=== PATIENT | female | born 1965 | race Caucasian/White ===

== ENCOUNTER → 2020-04-19 | Outpatient (CLI) | payer OTHER ==
[2020-04-19 09:02] LABS: Basophils # (A) 0.1 k/uL (0-0.2); Basophils % (A) 1 %; Eosinophils # (A) 0.5 k/uL (0-0.7); Eosinophils % (A) 6 %; HCT 37.9 % (34.0-46.0); HGB 12.8 gm/dL (11.4-16.0); Lymphocytes # (A) 3.5 k/uL (1.0-4.8); Lymphocytes % (A) 47 %; MCH 31.7 pg (25.0-35.0); MCHC 33.7 g/dL (31.0-37.0); Mean Platelet Volume 7.7; Monocytes # (A) 0.5 k/uL (0-1.0); Monocytes % (A) 7 %; Neutrophils # (A) 2.6 k/uL (1.3-7.7); Neutrophils % (A) 36 %; Platelet Count 307 k/uL (150-450); RBC 4.03 m/uL (3.80-5.40); RDW 11.6 % (11.5-15.5); WBC 7.3 k/uL (3.8-10.6)
[2020-04-19 09:28] LABS: Potassium 4.4 mmol/L (3.5-5.1)
== END | disposition home or self-care (01) ==
LOC: LABPAT 08:42
PROVIDERS: ATTEND Orthopaedic Surgery
DX: G56.01 Carpal tunnel syndrome, right upper limb (principal)
CPT/HCPCS: 36415; 80051; 85025

== ENCOUNTER → 2020-04-19 | Outpatient (CLI) | payer OTHER ==
--- NOTE | 2020-04-19 11:50 | MM ---
Reason for exam: screening (asymptomatic). Physical Findings: A clinical breast exam by your physician is recommended on an annual basis and results should be correlated with mammographic findings. MG 3D Screening Mammo W/Cad Bilateral CC and MLO view(s) were taken. No prior studies available for comparison. There are scattered fibroglandular densities. Finding: There is a 6 mm circumscribed round mass in the upper outer quadrant, posterior position of the right breast. Suspect low lying benign lymph node. Advise ultrasound follow up. Benign right axillary lymph nodes. ASSESSMENT: Incomplete: need additional imaging evaluation, BI-RAD 0 RECOMMENDATION: Ultrasound of the right breast. [facility] will attempt to contact patient to return for ultrasound.
== END | disposition home or self-care (01) ==
LOC: RADMAMWWP 08:56
PROVIDERS: ATTEND Family Medicine
DX: Z12.31 Encounter for screening mammogram for malignant neoplasm of breast (principal)
CPT/HCPCS: 77063; 77067

== ENCOUNTER 2020-05-02 10:37 | Day surgery (SDC) | payer OTHER ==
[2020-04-27 15:59] VITALS: BMI 32.9
--- NOTE | 2020-05-01 14:06 | HP ---
HISTORY AND PHYSICAL DATE OF SURGERY: 05/02/2020. Saima Gerard is a 54-year-old patient seen with symptomatic right carpal tunnel syndrome. We discussed options. She elected to proceed decompression, right median nerve. Consent was obtained. PAST MEDICAL HISTORY: Hyperlipidemia, hypertension. PAST SURGICAL HISTORY: section. DAILY MEDICATIONS: Hydrochlorothiazide, losartan, pravastatin. ALLERGIES: None. SOCIAL HISTORY: She denies current tobacco use. PHYSICAL EVALUATION OF THE RIGHT HAND: She has positive carpal compression and carpal tunnels causing exacerbation with numbness and tingling along the median nerve distribution. She does have some decreased sensation along the median nerve distribution. She has good radial pulse and good perfusion distally. She the A1 oscar areas. X-RAYS OF THE RIGHT HAND AND WRIST: Reveal some osteoarthritic changes. An EMG of the upper extremities reveals severe bilateral carpal tunnel syndrome. IMPRESSION: 1. Right carpal tunnel syndrome. 2. Hypertension. 3. Hyperlipidemia. PLAN: Decompression right median nerve. MMODL / IJN: [id number] /
[~2020-05-02 10:37] MED LIST: LACTATED RINGERS 1,000 ML IV SCH; LIDOCAINE 1% (10MG/ML) FOR IV START INTRADERMA PRN
[2020-05-02] MEDS ORDERED: ONDANSETRON 4 MG/2 ML VIAL ONE (11:37)
[2020-05-02] MEDS ORDERED: DEXAMETHASONE SOD PHOSPHATE 10 MG/ML 1 ML VIAL IV ONE (11:38)
[2020-05-02] MEDS ORDERED: ONDANSETRON 4 MG/2 ML VIAL IVP ONE (11:39)
[2020-05-02] MEDS ORDERED: PROPOFOL 10 MG/ML 20 ML VIAL IV ONE (12:10)
[2020-05-02] MEDS ORDERED: fentaNYL (PF) 50 MCG/ML 2 ML AMP ONE (12:10)
[2020-05-02] MEDS ORDERED: MIDAZOLAM 2 MG/2 ML VIAL ONE (12:10)
[2020-05-02] MEDS ORDERED: BUPIVACAINE (PF) 0.25% 30 ML VIAL SQ ONE (12:33)
--- NOTE | 2020-05-02 12:54 | P.OP ---
Date of Procedure: 05/02/20 Preoperative Diagnosis: Right carpal tunnel syndrome Postoperative Diagnosis: Right carpal tunnel syndrome Procedure(s) Performed: Decompression right median nerve Anesthesia: MAC, local Surgeon: Harinder Somers Estimated Blood Loss (ml): 1 Pathology: none sent Condition: stable Disposition: PACU Indications for Procedure: 54-year-old patient seen with symptomatic right carpal tunnel syndrome. After having treatment options discussed, she elected to proceed with decompression right median nerve. Operative Findings: see description of procedure Description of Procedure: Patient was taken to the operative suite. Patient underwent IV sedation by the department of anesthesia. The patient received preoperative IV antibiotics. A well-padded tourniquet was placed proximal right upper extremity. The right upper extremity was prepped and draped in the normal sterile orthopedic fashion. The proposed incision site was infiltrated with 10 mL quarter percent plain Marcaine. When sufficient local analgesia was noted the extremity was elevated and the tourniquet was insufflated to 250. I now made an incision beginning at the distal volar wrist crease extending distally approximately 3 cm in line with the fourth metacarpal. I dissected down through the subcu soft tissues and through the palmar fascia to the transverse carpal ligament. I made a small incision through the transverse carpal ligament. I released the ligament proximally and distally with blunt Metzenbaums. There was complete release of the transverse carpal ligament was good decompression of the nerve. We had good hemostasis. The wound was irrigated. The skin margins were proximal nylon suture. I applied sterile dressings. The tourniquet was released with immediate capillary refill of the entire hand and digits noted. I now applied sterile web roll and Coban. The patient was now awakened transferred to recovery stable satisfactory condition.
[2020-05-02 13:10] VITALS: TEMP 97
[2020-05-02 14:32] VITALS: BP 138/82; PULSE 56; RESP 18
== END 2020-05-02 14:30 | disposition home or self-care (01) ==
LOC: OR 10:37
PROVIDERS: ATTEND Orthopaedic Surgery
DX: G56.01 Carpal tunnel syndrome, right upper limb (principal); E78.5 Hyperlipidemia, unspecified; I10 Essential (primary) hypertension; Z79.899 Other long term (current) drug therapy; Z98.891 History of uterine scar from previous surgery; Z79.1 Long term (current) use of non-steroidal anti-inflammatories (NSAID)
CPT/HCPCS: 81025; 64721; J2250; J1100; J0690; J2405; J3010; J2704

== ENCOUNTER → 2020-05-07 | Outpatient (CLI) | payer OTHER ==
--- NOTE | 2020-05-07 08:45 | USB ---
Reason for exam: additional evaluation requested from abnormal screening. Physical Findings: Nurse did not find any significant physical abnormalities on exam. US Breast Workup Limited RT Right limited breast ultrasound including focal area of concern, retroareolar and axilla demonstrates a 6 x 5 x 4mm oval lymph node at 10 o'clock, correspoonds well to the mammographic finding. 6 month follow up mammogram recommended to ensure the node remains stable. Scanned 9-12 o'clock. These results were verbally communicated with the patient and result sheet given to the patient on 05/07/20. ASSESSMENT: Probably benign, BI-RAD 3 RECOMMENDATION: Follow-up diagnostic mammogram of the right breast in 6 months.
== END | disposition home or self-care (01) ==
LOC: RADUSWWP 07:40
PROVIDERS: ATTEND Family Medicine
DX: R92.8 Other abnormal and inconclusive findings on diagnostic imaging of breast (principal)

== ENCOUNTER → 2020-06-20 | Outpatient (CLI) | payer OTHER ==
[2020-06-20 07:48] LABS: Basophils # (A) 0.1 k/uL (0-0.2); Basophils % (A) 1 %; Eosinophils # (A) 0.3 k/uL (0-0.7); Eosinophils % (A) 3 %; HCT 38.3 % (34.0-46.0); Lymphocytes # (A) 3.1 k/uL (1.0-4.8); Lymphocytes % (A) 27 %; MCH 31.9 pg (25.0-35.0); MCV 93.8 fL (80.0-100.0); Mean Platelet Volume 7.3; Monocytes # (A) 0.6 k/uL (0-1.0); Monocytes % (A) 5 %; Neutrophils # (A) 7.1 k/uL (1.3-7.7); Neutrophils % (A) 63 %; Platelet Count 298 k/uL (150-450); RBC 4.08 m/uL (3.80-5.40); WBC 11.3 k/uL (3.8-10.6)
[2020-06-20 08:02] LABS: Potassium 4.3 mmol/L (3.5-5.1)
== END | disposition home or self-care (01) ==
LOC: LABWHC1 07:04
PROVIDERS: ATTEND Orthopaedic Surgery
DX: G56.02 Carpal tunnel syndrome, left upper limb (principal)
CPT/HCPCS: 36415; 80051; 85025

== ENCOUNTER 2020-06-28 14:49 | Day surgery (SDC) | payer OTHER ==
[2020-06-26 11:58] VITALS: BMI 32.7
--- NOTE | 2020-06-27 16:46 | HP ---
HISTORY AND PHYSICAL DATE OF SURGERY: 06/28/2020 Saima Gerard is a 55-year-old lady seen with symptomatic left carpal tunnel syndrome. We discussed options for treatment. She elected to proceed with decompression of the left median nerve. Consent was obtained. PAST MEDICAL HISTORY: Hyperlipidemia, hypertension. PAST SURGICAL HISTORY: Right carpal tunnel release, section. DAILY MEDICATIONS: Hydrochlorothiazide, losartan, pravastatin. ALLERGIES: NONE. SOCIAL HISTORY: She denies tobacco use currently. PHYSICAL EVALUATION OF THE LEFT HAND: Positive carpal compression and positive carpal Tinel's which cause numbness and tingling throughout the median nerve distribution. There is no tenderness along the A1 oscar sites. There is good sensation distally. EMG reveals severe carpal tunnel syndrome. IMPRESSION: 1. Left carpal tunnel syndrome. 2. Hypertension. 3. Hyperlipidemia. PLAN: Decompression of left median nerve. MMTHIL / IJN: [id number] /
[~2020-06-28 14:49] MED LIST changes: +DEXAMETHASONE SOD PHOSPHATE 4 MG/ML 1 ML VIAL IV ONE; +HYDROmorphone 0.5 MG/0.5 ML SYRINGE IVP PRN; +MIDAZOLAM 2 MG/2 ML VIAL IV PRN; +ONDANSETRON 4 MG/2 ML VIAL IVP ONE
[2020-06-28 15:14] VITALS: RESP 16; TEMP 97.3
[2020-06-28] MEDS ORDERED: fentaNYL (PF) 50 MCG/ML 2 ML AMP ONE (16:06)
[2020-06-28] MEDS ORDERED: PROPOFOL 10 MG/ML 20 ML VIAL IV ONE (16:06)
[2020-06-28] MEDS ORDERED: LIDOCAINE 1% INJ 10MG/ML (20 ML MDV) ONE (16:06)
[2020-06-28] MEDS ORDERED: MIDAZOLAM 2 MG/2 ML VIAL ONE (16:06)
[2020-06-28] MEDS ORDERED: BUPIVACAINE (PF) 0.25% 30 ML VIAL SQ ONE (16:22)
--- NOTE | 2020-06-28 16:53 | P.OP ---
Date of Procedure: 06/28/20 Preoperative Diagnosis: Left carpal tunnel syndrome Postoperative Diagnosis: Left carpal tunnel syndrome Procedure(s) Performed: Decompression left median nerve Anesthesia: MAC, local Surgeon: Harinder Somers Estimated Blood Loss (ml): 0 Pathology: none sent Condition: stable Disposition: PACU Indications for Procedure: 55-year-old patient seen with symptomatic left carpal tunnel syndrome. I discussed options for treatment and she elected to proceed with decompression left median nerve. Operative Findings: See description of procedure Description of Procedure: She was taken to the operative suite. Well-padded tourniquet placed left upper extremity proximally. She received preoperative IV antibiotics. The left upper extremity was prepped and draped in the normal sterile orthopedic fashion. The proposed incision site was infiltrated with 10 mL quarter percent plain Marcaine. The extremity was elevated and tourniquet insufflated to 250. I made an incision beginning at the distal volar wrist crease extending distally approximately 3 cm in line with the fourth metacarpal sharply through skin. I dissected down through the subcutaneous soft tissues down to the palmar fascia to the transverse carpal ligament. I made a small incision through the transverse carpal ligament. I completed the release proximally and distally with blunt Metzenbaums. There was complete release of the transverse carpal ligament and good decompression of the nerve. There was good hemostasis. I irrigated the wound. I repaired the skin with nylon suture. Sterile dressings were applied. The tourniquet was released and immediate capillary refill noted. The patient was awakened and transferred to recovery stable condition.
[2020-06-28 17:00] VITALS: BP 134/85; PULSE 63
== END 2020-06-28 17:12 | disposition home or self-care (01) ==
LOC: OR 14:49
PROVIDERS: ATTEND Orthopaedic Surgery
DX: G56.02 Carpal tunnel syndrome, left upper limb (principal); I10 Essential (primary) hypertension; E78.5 Hyperlipidemia, unspecified; Z86.69 Personal history of other diseases of the nervous system and sense organs; Z98.890 Other specified postprocedural states; Z79.899 Other long term (current) drug therapy; Z79.891 Long term (current) use of opiate analgesic
CPT/HCPCS: 64721; J2250; J1100; J0690; J2405; J2001; J3010; J2704

== ENCOUNTER → 2020-10-12 | Outpatient (CLI) | payer OTHER ==
--- NOTE | 2020-10-15 03:40 | MR ---
EXAMINATION TYPE: MR shoulder RT wo con DATE OF EXAM: 10/12/2020 COMPARISON: Outside radiograph 09/25/2020 HISTORY: 55-year-old female M25.511, right shoulder pain. TECHNIQUE: Multiplanar, multisequence imaging of the right shoulder is performed without contrast. FINDINGS: The intracapsular portion of the long head biceps tendon is not well seen and could be severely tendi notic or torn. The tendon is also not well seen within the bicipital groove. It becomes adequately vi sualized just below the level of the bicipital groove where moderate tenosynovitis of fluid is presen t. The subscapularis tendon is thickened and heterogeneous but appears grossly intact. Minimal fatty str eaks are present within this muscle belly. Mild to moderate degenerative joint space narrowing is present at the acromioclavicular joint. An os acromiale with some fluid is present. There is a full-thickness tear of the majority of the supraspinatus tendon measuring 2.0 cm AP. The s tump is retracted nearly to the level of the glenoid by 3.4 cm. Minimal fatty streaks within its musc le belly. The infraspinatus tendon fibers are severely thickened and heterogeneous. There is a tiny articular s ided tear measuring 3 x 3 mm of the anterior intraspinous tendon proximal to the footprint, nearly be low the level of the AC joint. Mild to moderate fluid is present within the subacromial/subdeltoid bursa continuous with the glenohu meral joint. The superior labrum appears degenerative and blunted. Mild articular cartilage irregularity throughou t the glenohumeral joint. No para labral cysts. No Hill-Sachs deformity. Patchy red marrow is present in the seen in the setting of anemia, obesity, smoking, and cardiac disease. IMPRESSION: 1. Severe diffuse rotator cuff tendinosis. 2. Full-thickness tear of nearly the entire supraspinatus tendon measuring 2.0 cm AP and stump retrac davide nearly to the glenoid by 3.4 cm. Minimal fatty streaks within its muscle belly. 3. Minimal fatty streaks within the subscapularis muscle belly though the majority of the tendon appe ars intact. 4. Tendinosis is particularly severe involving the infraspinatus tendon. There is a tiny articular si ded 3 x 3 mm tear of the anterior fibers proximal to the footprint, nearly below the level of the AC joint. 5. Unable to adequately visualize the intracapsular portion of the long head biceps tendon or within most of the bicipital groove. There may be an underlying long head biceps tendon tear. 6. Degenerative joint space narrowing at the AC joint. An os acromiale is noted. 7. Mild degenerative changes in the glenohumeral joint.
== END | disposition home or self-care (01) ==
LOC: RADMRIMAIN 12:33
PROVIDERS: ATTEND Orthopaedic Surgery
DX: M75.121 Complete rotator cuff tear or rupture of right shoulder, not specified as traumatic (principal); M19.011 Primary osteoarthritis, right shoulder

== ENCOUNTER → 2020-11-21 | Outpatient (CLI) | payer OTHER ==
--- NOTE | 2020-11-22 09:44 | MM ---
Reason for exam: follow-up at short interval from prior study. Last mammogram was performed 7 months ago. History: Patient is postmenopausal. Physical Findings: Nurse did not find any significant physical abnormalities on exam. MG 3D Diag Mammo W/Cad RT CC and MLO view(s) were taken of the right breast. Prior study comparison: April 19, 2020, bilateral MG 3d screening mammo w/cad. The breast tissue is heterogeneously dense. This may lower the sensitivity of mammography. Stable lymph node upper outer right breast. These results were verbally communicated with the patient and result sheet given to the patient on 11/21/20. ASSESSMENT: Benign, BI-RAD 2 RECOMMENDATION: Return to routine screening mammogram schedule for both breasts.
== END | disposition home or self-care (01) ==
LOC: RADMAMWWP 14:20
PROVIDERS: ATTEND Family Medicine
DX: R92.2 Inconclusive mammogram (principal); Z78.0 Asymptomatic menopausal state
CPT/HCPCS: 77065; G0279; 77061

== ENCOUNTER → 2020-12-05 | Outpatient (CLI) | payer OTHER ==
[2020-12-05 10:47] LABS: Basophils # (A) 0.08 X 10*3/uL (0.00-0.10); Basophils % (A) 0.8 %; Eosinophils # (A) 0.52 X 10*3/uL (0.04-0.35); Eosinophils % (A) 5.3 %; HCT 39.2 % (37.2-46.3); HGB 13.2 g/dL (12.0-15.0); Lymphocytes # (A) 3.57 X 10*3/uL (0.90-5.00); Lymphocytes % (A) 36.6 %; MCH 31.3 pg (27.0-32.0); MCHC 33.7 g/dL (32.0-37.0); MCV 92.9 fL (80.0-97.0); Monocytes # (A) 0.77 X 10*3/uL (0.20-1.00); Monocytes % (A) 7.9 %; Neutrophils # (A) 4.79 X 10*3/uL (1.80-7.70); Neutrophils % (A) 49.2 %; Platelet Count 307 X 10*3/uL (140-440); RBC 4.22 X 10*6/uL (4.10-5.20); RDW 12.5 % (11.5-14.5); WBC 9.75 X 10*3/uL (4.50-10.00)
[2020-12-05 12:05] LABS: Anion Gap 10.6 mmol/L (4.00-12.00); Carbon Dioxide 25.4 mmol/L (21.6-31.8); Potassium 4.1 mmol/L (3.5-5.5)
== END | disposition home or self-care (01) ==
LOC: LABWHC1 07:44
PROVIDERS: ATTEND Orthopaedic Surgery
DX: Z01.812 Encounter for preprocedural laboratory examination (principal); Z01.810 Encounter for preprocedural cardiovascular examination; M75.41 Impingement syndrome of right shoulder
CPT/HCPCS: 36415; 80051; 85025; 93005

== ENCOUNTER 2020-12-26 08:47 | Day surgery (SDC) | payer OTHER ==
[2020-12-24 12:36] VITALS: BMI 32.9
--- NOTE | 2020-12-25 14:05 | HP ---
HISTORY AND PHYSICAL REASON FOR ADMISSION: Surgery is 12/26/2020. HISTORY OF PRESENT ILLNESS: Saima Gerard is a 55-year-old patient seen with progressive right shoulder pain. We discussed options for treatment. She elected to proceed with arthroscopy. Consent was obtained. PAST MEDICAL HISTORY: Hypertension and hypercholesterolemia. PAST SURGICAL HISTORY: section. MEDICATIONS: Hydrochlorothiazide, losartan, pravastatin. ALLERGIES: NONE. SOCIAL HISTORY: Denies tobacco use. PHYSICAL EVALUATION OF THE RIGHT SHOULDER: Flexion is 140, abduction is 110, external rotation is 30 with weakness and significant pain. Tenderness along the anterolateral acromion rotator cuff insertion site. Impingement positive at 90. Drop-arm sign is positive. Distal neurovascular exam is intact. RADIOGRAPHS: Radiographs of the right shoulder revealed a type 2 acromion, acromioclavicular and osteoarthritis and cystic changes of the greater tuberosity. Right shoulder MRI revealed a large retracted rotator cuff tendon tear. IMPRESSION: 1. Right shoulder impingement with rotator cuff tear. 2. Right shoulder acromioclavicular joint osteoarthritis. 3. Hypertension. 4. Hyperlipidemia. PLAN: Right shoulder arthroscopy, subacromial decompression, arthroscopic rotator cuff repair, Kang procedure and debridement. Surgery scheduled for 12/26/2020. MMODL / IJN: [id number] /
[~2020-12-26 08:47] MED LIST changes: +FAMOTIDINE 20 MG/2 ML VIAL IV PRN; -LACTATED RINGERS 1,000 ML IV SCH; -LIDOCAINE 1% (10MG/ML) FOR IV START INTRADERMA PRN; -MIDAZOLAM 2 MG/2 ML VIAL IV PRN
[2020-12-26] MEDS: LACTATED RINGERS 1,000 ML IV SCH ×2 (09:33→10:05)
[2020-12-26] MEDS ORDERED: MIDAZOLAM 2 MG/2 ML VIAL IVP ONE (09:44)
[2020-12-26] MEDS ORDERED: GLYCOPYRROLATE 0.2 MG/ML 2 ML VIAL ONE (10:01)
[2020-12-26] MEDS ORDERED: LIDOCAINE 1% INJ 10MG/ML (20 ML MDV) ONE (10:01)
[2020-12-26] MEDS ORDERED: PROPOFOL 10 MG/ML 20 ML VIAL IV ONE (10:01)
[2020-12-26] MEDS ORDERED: DEXAMETHASONE SOD PHOSPHATE 4 MG/ML 1 ML VIAL ONE (10:01)
[2020-12-26] MEDS ORDERED: MIDAZOLAM 2 MG/2 ML VIAL ONE (10:01)
[2020-12-26] MEDS ORDERED: KETOROLAC 15 MG/ML 1 ML VIAL ONE (10:01)
[2020-12-26] MEDS ORDERED: fentaNYL (PF) 50 MCG/ML 2 ML AMP ONE (10:01)
[2020-12-26] MEDS ORDERED: ROPIVACAINE 5 MG/ML 30 ML VIAL ONE (10:01)
[2020-12-26] MEDS ORDERED: SUCCINYLCHOLINE CHLORIDE 100 MG/5 ML SYR IV ONE (10:01)
--- NOTE | 2020-12-26 11:46 | P.OP ---
Date of Procedure: 12/26/20 Preoperative Diagnosis: Right shoulder impingement Postoperative Diagnosis: 1. Right shoulder rotator cuff tear 2. Right shoulder impingement 3. Right shoulder acromioclavicular joint osteoarthritis 4. Right shoulder partial long head biceps tendon tear Procedure(s) Performed: 1. Right shoulder arthroscopic rotator cuff repair 2. Right shoulder arthroscopic subacromial decompression 3. Right shoulder arthroscopic Kang procedure 4. Right shoulder arthroscopic biceps tenotomy Implants: 4Arthrex 4.75 swivel lock anchors Anesthesia: GETA, regional (Interscalene block) Surgeon: Harinder Somers Manufacturing Quality Manager #1: Trenton Duggan Estimated Blood Loss (ml): 11 Pathology: none sent Condition: stable Disposition: PACU Indications for Procedure: 55-year-old patient seen with progressive right shoulder pain. After having t reatment options discussed, she elected to proceed with arthroscopy. Operative Findings: see description of procedure Description of Procedure: Patient underwent an interscalene block by department of anesthesia. The patient was then taken to the operative suite. The patient underwent a general anesthetic by the department of anesthesia. The patient was placed into a lateral position and secured. There was appropriate padding of the bony prominence. Right shoulder was then prepped and draped in normal sterile orthopedic fashion. We placed the extremity in 10 pounds of longitudinal traction. A posterior incision was now made for a posterior working portal site. The trocar and cannula were inserted into the glenohumeral joint. Arthroscopy was initiated. Spinal needle was now inserted anteriorly, to ascertain the anterior working portal site. An incision was now made in that area, a trocar was inserted followed by a probe. There was mild grade 1 chondromalacia of the glenoid fossa anteriorly. There was significant partial tearing long head biceps tendon. There was mild fraying of the superior labrum. The remainder labrum was stable. I performed an arthroscopic biceps tenotomy. I debrided that superficial fraying of the labrum. The residual labrum was again probed and found to be stable. Instruments now removed from the glenohumeral joint. Utilizing the posterior working portal site, the trocar and cannula were inserted into the subacromial space. Arthroscopy initiated. I made an incision 2 fingerbreadths lateral to the acromion. I introduced my trocar followed by my ArthroCare ablator. I now began ablating thick subacromial bursal tissue, which exposed the undersurface of the anterior acromion. There was diminished subacromial space. There was a very prominent anterior acromion. A motorized bur was introduced and a subacromial decompression was performed. I also excised some osteophytes off the inferior aspect of the distal clavicle. The AC joint was visualized and noted to be fairly arthritic. The motorized bur was introduced in the anterior portal site and a Kang procedure was performed wi thout difficulty, decompressing the AC joint nicely. I turned my attention to the rotator cuff. There was a 2.5 cm rotator cuff tear. I debrided the margins getting down to stable tendon tissue. I introduced my motorized bur and abraded the footprint area, getting some petechial bleeding. I now made an accessory portal site off the lateral aspect of the acromion. I punched 2 holes medial for medial row fixation with the assistance of Trenton MATOS carefully tapping the punch with a mallet as I held the punch and the camera. I now introduced both anchors into the pre-punched holes and Trenton MATOS tapped them with the mallet as I held anchors and the camera. Trenton MATOS now screwed the anchors in place a while I held the anchor guide and camera. All 8 limbs of suture were now passed through good bites of rotator cuff tendon. I now punched 2 holes for lateral row fixation again I held the punch and camera while Sarmad MATOS used a mallet to tap in the punch. We now passed sutures through both anchors and individually I introduced the anchors into the pre-punch holes I held the anchor guide in position with one hand holding the camera with the other hand while Trenton MATOS tensioned the sutures and screwed in the anchors one at a time. All residual suture limbs were now clipped. We had good compression of the tendon along the entire footprint. Instruments now removed from the portal sites. All portal sites were approximated with nylon suture. Sterile dressings were applied followed by a shoulder immobilizer. Trenton MATOS assisted in this complex case. The patient was awakened, transferred to a bed, and taken to recovery in stable condition.
[2020-12-26 11:50] VITALS: TEMP 97.5
[2020-12-26] MEDS ORDERED: ONDANSETRON 4 MG/2 ML VIAL ONE (12:45)
[2020-12-26] MEDS ORDERED: ONDANSETRON 4 MG/2 ML VIAL IVP ONE (12:48)
[2020-12-26 13:46] VITALS: BP 143/84; PULSE 60; RESP 15
--- NOTE | 2020-12-27 20:02 | P.ANPRN ---
Procedure Note - Anesthesia - Nerve Block Performed Right Interscalene Single Time Out Performed: Yes Date of Procedure: 12/26/20 Procedure Start Time: 08:43 Procedure Stop Time: 08:49 Location of Patient: PreOp Indication: Acute Post-Operative Pain, Requested by Surgeon Sedation Type: Sedate with meaningful contact maintained Preparation: Sterile Prep Position: Supine Needle Types: Pajunk Needle Gauge: 21 Ultrasound used to visualize needle placement: Yes Ultrasound used to observe medication spread: Yes Blood Aspirated: No Pain Paresthesia on Injection Noted: No Resistance on Injection: Normal Image Stored and Saved: Yes Events: Uneventful and Well Tolerated (ropi .5% 20cc plus dexamethasone 4mg)
== END 2020-12-26 14:15 | disposition home or self-care (01) ==
LOC: OR 08:47
PROVIDERS: ATTEND Orthopaedic Surgery
DX: M75.101 Unspecified rotator cuff tear or rupture of right shoulder, not specified as traumatic (principal); M25.811 Other specified joint disorders, right shoulder; M19.011 Primary osteoarthritis, right shoulder; S46.111A Strain of muscle, fascia and tendon of long head of biceps, right arm, initial encounter; S43.431A Superior glenoid labrum lesion of right shoulder, initial encounter; X58.XXXA Exposure to other specified factors, initial encounter; M94.211 Chondromalacia, right shoulder; M25.711 Osteophyte, right shoulder; E78.5 Hyperlipidemia, unspecified; I10 Essential (primary) hypertension; E78.00 Pure hypercholesterolemia, unspecified; Z98.891 History of uterine scar from previous surgery; Z98.890 Other specified postprocedural states; Z79.899 Other long term (current) drug therapy; Z79.891 Long term (current) use of opiate analgesic
CPT/HCPCS: 29826; 29827; 29824; 64415; 76942; C1713; C1894; J2250; J1100; J0690; J2405; J2001; J3010; J2795; J1885; J0330; J2704

== ENCOUNTER 2021-02-04 20:16 | Emergency (ER) | payer OTHER ==
[2021-02-04 20:38] VITALS: BP 149/82; PULSE 63; RESP 18; TEMP 98
[2021-02-04] MEDS ORDERED: LIDOCAINE 1% INJ 10MG/ML (20 ML MDV) SQ STA (21:07)
--- NOTE | 2021-02-04 21:13 | ED ---
General Adult HPI - General Chief complaint: Extremity Problem,Nontraumatic Stated complaint: Cat Bite Time Seen by Provider: 02/04/21 20:44 Source: patient Mode of arrival: ambulatory Limitations: no limitations - History of Present Illness Initial comments: 55-year-old female with a past medical history of hyperlipidemia and hypertension presents to the emergency room for chief complaint of left leg redness. Patient reports that this started 3 days ago. She was bitten by a cat 20 days ago and had Augmentin up until 10 days ago. Patient had stopped the Augmentin for about a week when the redness and swelling started again. Patient saw her doctor today who started her both on doxycycline and Flagyl. Told her to come to the ER for worsened. Patient states the redness spread down to her ankle so she became concerned. Patient has no other complaints at this time including shortness of breath, chest pain, abdominal pain, nausea or vomiting, headache, or visual changes. - Related Data Home Medications Medication Instructions Recorded Confirmed Cetirizine HCl [Zyrtec] 10 mg PO DAILY 04/27/20 12/26/20 Losartan Potassium [Cozaar] 100 mg PO DAILY 04/27/20 12/26/20 Montelukast [Singulair] 10 mg PO HS 04/27/20 12/26/20 Multivit with Calcium,Iron,Min 1 each PO DAILY 04/27/20 12/26/20 [Women's Multivitamin] Naprosyn (Unknown Dose) 1 tab PO DIRECTED PRN 04/27/20 12/26/20 [place]-3 Fatty Acids/Fish Oil [Fish 1 each PO DAILY 04/27/20 12/26/20 Oil 1,000 mg Softgel] Pravastatin Sodium [Pravachol] 20 mg PO HS 04/27/20 12/26/20 hydroCHLOROthiazide 25 mg PO DAILY 04/27/20 12/26/20 Previous Rx's Medication Instructions Recorded traMADol HCl [Ultram] 50 mg PO Q6H PRN #10 tab 05/02/20 HYDROcodone/APAP 7.5-325MG [[place] 1 each PO Q6HR PRN #28 tab 12/26/20 7.5] Allergies Allergy/AdvReac Type Severity Reaction Status Date / Time No Known Allergies Allergy Verified 02/04/21 20:38 Review of Systems ROS Statement: Those systems with pertinent positive or pertinent negative responses have been documented in the HPI. ROS Other: All systems not noted in ROS Statement are negative. Past Medical History Past Medical History: Hyperlipidemia, Hypertension Additional Past Medical History / Comment(s): allergies,, numbness & tingling LT hand. History of Any Multi-Drug Resistant Organisms: None Reported Past Surgical History: Section, Orthopedic Surgery Additional Past Surgical History / Comment(s): RT CTR-05/02/20 Past Anesthesia/Blood Transfusion Reactions: No Reported Reaction Past Psychological History: No Psychological Hx Reported Smoking Status: Former smoker - Past Family History Mother Family Medical History: No Reported History General Exam Limitations: no limitations General appearance: alert, in no apparent distress Head exam: Present: atraumatic Eye exam: Present: normal appearance ENT exam: Present: normal exam, mucous membranes moist Neck exam: Present: normal inspection, full ROM. Absent: tenderness, meningismus, lymphadenopathy Respiratory exam: Present: normal lung sounds bilaterally. Absent: respiratory distress, wheezes, rales, rhonchi, stridor Cardiovascular Exam: Present: regular rate, normal rhythm, normal heart sounds. Absent: systolic murmur, diastolic murmur, rubs, gallop, clicks Extremities exam: Present: full ROM (Full range motion of the left leg including the knee and ankle joint), tenderness (Tenderness tenderness noted to the proximal medial tib-fib area hour patient does have induration and erythema.), normal capillary refill (Capillary refill less than 2 seconds, DP pulse 2+ left lower extremity.), other (Sensation intact left lower extremity. mild erythema extending to proximal tib/fib) Course Vital Signs 02/04/21 20:33 Temperature 98.0 F Pulse Rate 63 Respiratory 18 Rate Blood Pressure 149/82 O2 Sat by Pulse 98 Oximetry Procedures - Incision & Drainage Consent Obtained: verbal consent Indication: abscess Site: lower extremity Size (cm): 1 Anesthetic Used: lidocaine 1% Amount (mLs): 1 Scalpel Used: #11 I&D Drainage Obtained: Pus (minimal) Medical Decision Making - Medical Decision Making Attempted incision and drainage. Minimal purulent drainage at this time. Patient does have cellulitis extending to the left ankle. Patient has only been on antibiotics for a couple hours. She started the medics after she noticed the redness tonight. X-ray was obtained no foreign bodies. At this time discussed with patient that we should continue the antibiotics for 24 hours. She is certainly improve after that. If it is worsening significant she needs to return to the emergency room. If she gets any fever she will return as well. I discussed this case with attending Dr. Jesus who agrees with this assessment and treatment plan. Disposition Clinical Impression: Cellulitis Disposition: HOME SELF-CARE Condition: Good Instructions (If sedation given, give patient instructions): Animal Bite (ED), Cellulitis (ED) Additional Instructions: Continue the antibiotics. See if you can follow-up with your doctor tomorrow for recheck. If you have any worsening symptoms return to the emergency room. Is patient prescribed a controlled substance at d/c from ED?: No Referrals: Xavier Sousa DO [Primary Care Provider] - 1-2 days Time of Disposition: 22:08
--- NOTE | 2021-02-04 21:46 | XR ---
EXAMINATION TYPE: XR tibia fibula LT DATE OF EXAM: 02/04/2021 COMPARISON: NONE HISTORY: Pain TECHNIQUE: 2 views FINDINGS: I see no fracture nor dislocation. Joint spaces are normal. There are no pathologic calcifi cations. IMPRESSION: Negative left tibia and fibula exam. No acute fracture. There is probably an old healed f racture mid shaft of the fibula.
== END 2021-02-04 22:34 | disposition home or self-care (01) ==
LOC: EC 20:16
DX: L03.116 Cellulitis of left lower limb (principal); I10 Essential (primary) hypertension; E78.5 Hyperlipidemia, unspecified; Z87.891 Personal history of nicotine dependence; Z79.899 Other long term (current) drug therapy
CPT/HCPCS: 73590; 99283; 10060; J2001

== ENCOUNTER 2021-04-11 19:42 | Emergency (ER) | payer BC, OTHER ==
[2021-04-11] MEDS ORDERED: PIPERACILLIN-TAZOBACTAM 3.375 GM in SODIUM CHLORIDE 0.9% 100 ML IVPB STA (20:51)
[2021-04-11 21:15] LABS: Basophils # (A) 0.1 k/uL (0-0.2); Basophils % (A) 1 %; Eosinophils # (A) 0.5 k/uL (0-0.7); Eosinophils % (A) 4 %; HCT 39.3 % (34.0-46.0); HGB 13.4 gm/dL (11.4-16.0); Lymphocytes # (A) 3.8 k/uL (1.0-4.8); Lymphocytes % (A) 29 %; MCH 31.5 pg (25.0-35.0); MCHC 34.2 g/dL (31.0-37.0); MCV 92.2 fL (80.0-100.0); Mean Platelet Volume 8.3; Monocytes # (A) 0.8 k/uL (0-1.0); Monocytes % (A) 6 %; Neutrophils # (A) 7.9 k/uL (1.3-7.7); Neutrophils % (A) 60 %; Platelet Count 325 k/uL (150-450); RBC 4.26 m/uL (3.80-5.40); RDW 12.2 % (11.5-15.5); WBC 13.2 k/uL (3.8-10.6)
[2021-04-11 21:28] LABS: ALT 29 U/L (4-34); AST 30 U/L (14-36); African American GFR (CKD) 86 (>60 ml/min/1.73 sqM); Albumin 4.8 g/dL (3.5-5.0); Alkaline Phosphatase 71 U/L (38-126); Anion Gap 12 mmol/L; Blood Urea Nitrogen 24 mg/dL (7-17); C Reactive Protein <0.5 mg/dL (<1.0); Calcium 10.2 mg/dL (8.4-10.2); Carbon Dioxide 27 mmol/L (22-30); Chloride 103 mmol/L (98-107); Glucose 124 mg/dL (74-99); Non-African American GFR(CKD) 75 (>60 ml/min/1.73 sqM); Potassium 3.6 mmol/L (3.5-5.1); Sodium 142 mmol/L (137-145); Total Bilirubin 0.4 mg/dL (0.2-1.3); Total Protein 7.8 g/dL (6.3-8.2)
[2021-04-11] MEDS ORDERED: MORPHINE SULFATE 4 MG/ML SYRINGE IVP STA (21:43)
--- NOTE | 2021-04-11 22:01 | XR ---
PROCEDURE: XR hand complete RT - 3V DATE AND TIME: 04/11/2021 9:18 PM CLINICAL INDICATION: PHH; swelling, cat bite TECHNIQUE: Department protocol COMPARISON: None FINDINGS: The bones and joints are negative for acute findings. There is soft tissue swelling, but no soft tissue emphysema or radiopaque foreign bodies. IMPRESSION: Soft tissue swelling
--- NOTE | 2021-04-11 22:35 | ED ---
Upper Extremity HPI - General Chief Complaint: Extremity Injury, Upper Stated Complaint: Animal Bite Source: patient Mode of arrival: ambulatory Limitations: no limitations - History of Present Illness Initial Comments: Patient is a 55-year-old right-hand dominant female presents emergency Department with reported cat bite to her right hand. She states she was bit this afternoon as she was attempting agreement with. She called her primary care physician and they placed her on Augmentin. She states she had increasing swelling and pain and therefore came into the emergency room. She only took one dose of Augmentin at home. Denies any red streaking up her arm. Reports that it is painful to close her hands. She is up-to-date on her tetanus. No pustular drainage from the wounds. No other alleviating, precipitating or modifying factors - Related Data Home Medications Medication Instructions Recorded Confirmed Cetirizine HCl [Zyrtec] 10 mg PO DAILY 04/27/20 12/26/20 Losartan Potassium [Cozaar] 100 mg PO DAILY 04/27/20 12/26/20 Montelukast [Singulair] 10 mg PO HS 04/27/20 12/26/20 Multivit with Calcium,Iron,Min 1 each PO DAILY 04/27/20 12/26/20 [Women's Multivitamin] Naprosyn (Unknown Dose) 1 tab PO DIRECTED PRN 04/27/20 12/26/20 [place]-3 Fatty Acids/Fish Oil [Fish 1 each PO DAILY 04/27/20 12/26/20 Oil 1,000 mg Softgel] Pravastatin Sodium [Pravachol] 20 mg PO HS 04/27/20 12/26/20 hydroCHLOROthiazide 25 mg PO DAILY 04/27/20 12/26/20 Previous Rx's Medication Instructions Recorded traMADol HCl [Ultram] 50 mg PO Q6H PRN #10 tab 05/02/20 HYDROcodone/APAP 7.5-325MG [[place] 1 each PO Q6HR PRN #28 tab 12/26/20 7.5] Allergies Allergy/AdvReac Type Severity Reaction Status Date / Time No Known Allergies Allergy Verified 04/11/21 20:22 Review of Systems ROS Statement: Those systems with pertinent positive or pertinent negative responses have been documented in the HPI. ROS Other: All systems not noted in ROS Statement are negative. Past Medical History Past Medical History: Hyperlipidemia, Hypertension Additional Past Medical History / Comment(s): allergies,, numbness & tingling LT hand. History of Any Multi-Drug Resistant Organisms: None Reported Past Surgical History: Section, Orthopedic Surgery Additional Past Surgical History / Comment(s): RT CTR-05/02/20 Past Anesthesia/Blood Transfusion Reactions: No Reported Reaction Past Psychological History: No Psychological Hx Reported Smoking Status: Former smoker Past Alcohol Use History: Occasional Past Drug Use History: None Reported - Past Family History Mother Family Medical History: No Reported History General Exam Limitations: no limitations Course Vital Signs 04/11/21 04/11/21 20:15 22:48 Temperature 98 F 98.0 F Pulse Rate 72 74 Respiratory 18 16 Rate Blood Pressure 147/76 138/74 O2 Sat by Pulse 98 97 Oximetry Medical Decision Making - Medical Decision Making Upon arrival patient was placed into bed hallway 23. IV is established. Laboratory studies are conducted. Patient went for an x-ray which demonstrates no retained foreign bodies. Patient was given a dose of Zosyn. Her swelling is outlined with a tissue marker. Patient will be discharged home at this time. Instructed to continue taking the Augmentin as directed. Follow up for any worsening swelling she may require admission if the oral antibiotics do not help. Patient agreed to this was given written and verbal discharge instructions and discharged home in stable condition - Lab Data Result diagrams: 04/11/21 20:57 04/11/21 20:57 Lab Results 04/11/21 04/11/21 Range/Units 20:57 20:57 WBC 13.2 H (3.8-10.6) k/uL RBC 4.26 (3.80-5.40) m/uL Hgb 13.4 (11.4-16.0) gm/dL Hct 39.3 (34.0-46.0) % MCV 92.2 (80.0-100.0) fL MCH 31.5 (25.0-35.0) pg MCHC 34.2 (31.0-37.0) g/dL RDW 12.2 (11.5-15.5) % Plt Count 325 (150-450) k/uL MPV 8.3 Neutrophils % 60 % Lymphocytes % 29 % Monocytes % 6 % Eosinophils % 4 % Basophils % 1 % Neutrophils # 7.9 H (1.3-7.7) k/uL Lymphocytes # 3.8 (1.0-4.8) k/uL Monocytes # 0.8 (0-1.0) k/uL Eosinophils # 0.5 (0-0.7) k/uL Basophils # 0.1 (0-0.2) k/uL Sodium 142 (137-145) mmol/L Potassium 3.6 (3.5-5.1) mmol/L Chloride 103 (98-107) mmol/L Carbon Dioxide 27 (22-30) mmol/L Anion Gap 12 mmol/L BUN 24 H (7-17) mg/dL Creatinine 0.87 (0.52-1.04) mg/dL Est GFR (CKD-EPI)AfAm 86 (>60 ml/min/1.73 sqM) Est GFR (CKD-EPI)NonAf 75 (>60 ml/min/1.73 sqM) Glucose 124 H (74-99) mg/dL Calcium 10.2 (8.4-10.2) mg/dL Total Bilirubin 0.4 (0.2-1.3) mg/dL AST 30 (14-36) U/L ALT 29 (4-34) U/L Alkaline Phosphatase 71 (38-126) U/L C-Reactive Protein <0.5 (<1.0) mg/dL Total Protein 7.8 (6.3-8.2) g/dL Albumin 4.8 (3.5-5.0) g/dL Disposition Clinical Impression: Cat bite involving extremity Disposition: HOME SELF-CARE Condition: Stable Instructions (If sedation given, give patient instructions): Animal Bite (ED) Additional Instructions: Please take the Augmentin as directed. If you have any worsening redness or swelling, return to the ED for any new or worsening symptoms. Is patient prescribed a controlled substance at d/c from ED?: No Referrals: Xavier Sousa DO [Primary Care Provider] - 1-2 days Time of Disposition: 22:35
[2021-04-11 22:50] VITALS: BP 138/74; PULSE 74; RESP 16; TEMP 98
== END 2021-04-11 22:51 | disposition home or self-care (01) ==
LOC: EC 19:42
DX: S61.451A Open bite of right hand, initial encounter (principal); I10 Essential (primary) hypertension; E78.5 Hyperlipidemia, unspecified; Z87.891 Personal history of nicotine dependence; W55.01XA Bitten by cat, initial encounter
CPT/HCPCS: 36415; 80053; 85025; 86140; 87040; 96365; 96375; 99283

== ENCOUNTER 2023-05-03 11:56 | Emergency (ER) | payer BC ==
[2023-05-03 12:06] VITALS: RESP 18
--- NOTE | 2023-05-03 12:29 | ED ---
General Adult HPI - General Chief complaint: Chest Pain Stated complaint: HTN-Chest pain Time Seen by Provider: 05/03/23 12:05 Source: patient, RN notes reviewed, old records reviewed Mode of arrival: ambulatory Limitations: no limitations - History of Present Illness Initial comments: 49-year-old female presented for evaluation of chest pain and upper back pain which is been present for the past one month. Patient was diagnosed with coronavirus one month ago and had developed symptoms of chest pain and upper back pain is been present for at least 30 days. Pain does seem to be exertional. Pain is not worse with deep inspiration. Patient also has noted that her blood pressure has increased. She is currently on losartan and hydrochlorothiazide but noted that her blood pressure was elevated at home yesterday. No vomiting. No diaphoresis. No known coronary artery disease. No history of aortic pathology or DVT or PE. - Related Data Home Medications Medication Instructions Recorded Confirmed Cetirizine HCl [Zyrtec] 10 mg PO DAILY 04/27/20 12/26/20 Losartan Potassium [Cozaar] 100 mg PO DAILY 04/27/20 12/26/20 Montelukast [Singulair] 10 mg PO HS 04/27/20 12/26/20 Multivit with Calcium,Iron,Min 1 each PO DAILY 04/27/20 12/26/20 [Women's Multivitamin] Naprosyn (Unknown Dose) 1 tab PO DIRECTED PRN 04/27/20 12/26/20 [place]-3 Fatty Acids/Fish Oil [Fish 1 each PO DAILY 04/27/20 12/26/20 Oil 1,000 mg Softgel] Pravastatin Sodium [Pravachol] 20 mg PO HS 04/27/20 12/26/20 hydroCHLOROthiazide 25 mg PO DAILY 04/27/20 12/26/20 Previous Rx's Medication Instructions Recorded traMADol HCl [Ultram] 50 mg PO Q6H PRN #10 tab 05/02/20 HYDROcodone/APAP 7.5-325MG [[place] 1 each PO Q6HR PRN #28 tab 12/26/20 7.5] Allergies Allergy/AdvReac Type Severity Reaction Status Date / Time No Known Allergies Allergy Verified 05/03/23 12:02 Review of Systems ROS Statement: Those systems with pertinent positive or pertinent negative responses have been documented in the HPI. ROS Other: All systems not noted in ROS Statement are negative. Past Medical History Past Medical History: Hyperlipidemia, Hypertension Additional Past Medical History / Comment(s): allergies,, numbness & tingling LT hand. History of Any Multi-Drug Resistant Organisms: None Reported Past Surgical History: Section, Orthopedic Surgery Additional Past Surgical History / Comment(s): RT CTR-05/02/20 Past Anesthesia/Blood Transfusion Reactions: No Reported Reaction Past Psychological History: No Psychological Hx Reported Smoking Status: Former smoker Past Alcohol Use History: Occasional Past Drug Use History: None Reported - Past Family History Mother Family Medical History: No Reported History General Exam General appearance: alert, in no apparent distress Head exam: Present: atraumatic, normocephalic Eye exam: Present: normal appearance, PERRL ENT exam: Present: normal exam Neck exam: Present: normal inspection. Absent: tenderness Respiratory exam: Present: normal lung sounds bilaterally. Absent: respiratory distress, wheezes Cardiovascular Exam: Present: regular rate, normal rhythm GI/Abdominal exam: Present: soft, distended. Absent: tenderness, guarding Extremities exam: Present: normal inspection, normal capillary refill. Absent: pedal edema, calf tenderness Neurological exam: Present: alert, oriented X3, CN II-XII intact. Absent: motor sensory deficit Psychiatric exam: Present: normal affect, normal mood Skin exam: Present: warm, dry, intact. Absent: cyanosis, diaphoretic Course Vital Signs 05/03/23 05/03/23 12:02 13:01 Temperature 98.0 F Pulse Rate 62 Respiratory 18 Rate Blood Pressure 170/84 135/94 O2 Sat by Pulse 100 Oximetry Medical Decision Making - Medical Decision Making Was pt. sent in by a medical professional or institution (, PA, CREDIT PROFESSIONAL, urgent care, hospital, or custodial...) When possible be specific @ -No Did you speak to anyone other than the patient for history (EMS, parent, family, police, friend...)? What history was obtained from this source @ -No Did you review nursing and triage notes (agree or disagree)? Why? @ -I reviewed and agree with nursing and triage notes Were old charts reviewed (outside hosp., previous admission, EMS record, old EKG, old radiological studies, urgent care reports/EKG's, custodial records)? Report findings @ -No old charts were reviewed Differential Diagnosis (chest pain, altered mental status, abdominal pain women, abdominal pain men, vaginal bleeding, weakness, fever, dyspnea, syncope, headache, dizziness, GI bleed, back pain, seizure, CVA, palpatations, mental health, musculoskeletal)? @ -Differential Chest Pain: Stable Angina, Unstable Angina, STEMI, NSTEMI Aortic Dissection, Pneumothorax, Musculoskeletal, Esophageal Spasm GERD, Cholecystitis, Pancreatitis, Zoster, this is not meant to be an all-inclusive list. EKG interpreted by me (3pts min.). @ -EKG sinus bradycardia rate of 57, WI interval 161, QRS duration 89, QTC 417, no ST segment elevation. X-rays interpreted by me (1pt min.). @Chest x-ray negative for acute cardio pulmonary findings CT interpreted by me (1pt min.). @ -CT angiography performed in the setting of elevated d-dimer, negative for pulmonary embolism, negative for aortic pathology U/S interpreted by me (1pt. min.). @ -None done What testing was considered but not performed or refused? (CT, X-rays, U/S, labs)? Why? @ -None What meds were considered but not given or refused? Why? @ -None Did you discuss the management of the patient with other professionals (professionals i.e. , PA, CREDIT PROFESSIONAL, lab, RT, psych nurse, social work nurse, magazine editor, teacher, founder and chief executive officer, egg caser)? Give summary @ -No Was smoking cessation discussed for >3mins.? @ -No Was critical care preformed (if so, how long)? @ -No Were there social determinants of health that impacted care today? How? (Homelessness, low income, unemployed, alcoholism, drug addiction, transportation, low edu. Level, literacy, decrease access to med. care, detention, rehab)? @ -No Was there de-escalation of care discussed even if they declined (Discuss DNR or withdrawal of care, Hospice)? DNR status @ -No What co-morbidities impacted this encounter? (DM, HTN, Smoking, COPD, CAD, Cancer, CVA, ARF, Chemo, Hep., AIDS, mental health diagnosis, sleep apnea, morbid obesity)? @ -[Hypertension. Was patient admitted / discharged? Hospital course, mention meds given and route, prescriptions, significant lab abnormalities, going to OR and other pertinent info. @ -[57-year-old female presented for evaluation of chest pain which is been present for approximately one month. EKG is sinus rhythm without ST segment elevation. Chest x-ray is clear. D-dimer was minimally elevated and CT angiography was performed which was negative both for aortic pathology and pulmonary embolism. Troponin is negative. We did discuss possibility of observation for further cardiac evaluation versus discharge with close out patient follow-up. Patient prefers discharge. She's given strict return parameters and will follow closely with her primary care provider. Given the chronicity of her symptoms I do feel this is reasonable at this time. Undiagnosed new problem with uncertain prognosis? @ -No Drug Therapy requiring intensive monitoring for toxicity (Heparin, Nitro, Insulin, Cardizem)? @ -No Were any procedures done? @ -No Diagnosis/symptom? @ -[Chest pain Acute, or Chronic, or Acute on Chronic? @ -[Acute Uncomplicated (without systemic symptoms) or Complicated (systemic symptoms)? @ -default Side effects of treatment? @ -No Exacerbation, Progression, or Severe Exacerbation? @ -No Poses a threat to life or bodily function? How? (Chest pain, [place], [place], pneumonia, PE, COPD, DKA, ARF, appy, cholecystitis, CVA, Diverticulitis, Homicidal, Suicidal, threat to staff... and all critical care pts) @ -[Chest pain, moderate risk - Lab Data Result diagrams: 05/03/23 12:34 05/03/23 12:34 Lab Results 05/03/23 05/03/23 05/03/23 Range/Units 12:34 12:34 12:34 WBC 8.3 (3.8-10.6) k/uL RBC 3.96 (3.80-5.40) m/uL Hgb 12.5 (11.4-16.0) gm/dL Hct 36.3 (34.0-46.0) % MCV 91.5 (80.0-100.0) fL MCH 31.6 (25.0-35.0) pg MCHC 34.5 (31.0-37.0) g/dL RDW 12.4 (11.5-15.5) % Plt Count 294 (150-450) k/uL MPV 8.7 Neutrophils % 46 % Lymphocytes % 42 % Monocytes % 5 % Eosinophils % 4 % Basophils % 1 % Neutrophils # 3.8 (1.3-7.7) k/uL Lymphocytes # 3.5 (1.0-4.8) k/uL Monocytes # 0.4 (0-1.0) k/uL Eosinophils # 0.3 (0-0.7) k/uL Basophils # 0.1 (0-0.2) k/uL PT 9.8 L (10.0-12.5) sec INR 0.9 (<1.2) APTT 23.3 (22.0-30.0) sec D-Dimer 0.76 H (<0.60) mg/L FEU Sodium 140 (137-145) mmol/L Potassium 4.0 (3.5-5.1) mmol/L Chloride 104 (98-107) mmol/L Carbon Dioxide 24 (22-30) mmol/L Anion Gap 12 mmol/L BUN 22 H (7-17) mg/dL Creatinine 0.86 (0.52-1.04) mg/dL Est GFR (CKD-EPI)AfAm 87 (>60 ml/min/1.73 sqM) Est GFR (CKD-EPI)NonAf 75 (>60 ml/min/1.73 sqM) Glucose 97 (74-99) mg/dL Calcium 9.8 (8.4-10.2) mg/dL Magnesium 1.9 (1.6-2.3) mg/dL Total Bilirubin 0.6 (0.2-1.3) mg/dL AST 26 (14-36) U/L ALT 24 (4-34) U/L Alkaline Phosphatase 59 (38-126) U/L Troponin I (0.000-0.034) ng/mL Total Protein 7.5 (6.3-8.2) g/dL Albumin 4.5 (3.5-5.0) g/dL Lipase 313 H (23-300) U/L 05/03/23 Range/Units 12:34 WBC (3.8-10.6) k/uL RBC (3.80-5.40) m/uL Hgb (11.4-16.0) gm/dL Hct (34.0-46.0) % MCV (80.0-100.0) fL MCH (25.0-35.0) pg MCHC (31.0-37.0) g/dL RDW (11.5-15.5) % Plt Count (150-450) k/uL MPV Neutrophils % % Lymphocytes % % Monocytes % % Eosinophils % % Basophils % % Neutrophils # (1.3-7.7) k/uL Lymphocytes # (1.0-4.8) k/uL Monocytes # (0-1.0) k/uL Eosinophils # (0-0.7) k/uL Basophils # (0-0.2) k/uL PT (10.0-12.5) sec INR (<1.2) APTT (22.0-30.0) sec D-Dimer (<0.60) mg/L FEU Sodium (137-145) mmol/L Potassium (3.5-5.1) mmol/L Chloride (98-107) mmol/L Carbon Dioxide (22-30) mmol/L Anion Gap mmol/L BUN (7-17) mg/dL Creatinine (0.52-1.04) mg/dL Est GFR (CKD-EPI)AfAm (>60 ml/min/1.73 sqM) Est GFR (CKD-EPI)NonAf (>60 ml/min/1.73 sqM) Glucose (74-99) mg/dL Calcium (8.4-10.2) mg/dL Magnesium (1.6-2.3) mg/dL Total Bilirubin (0.2-1.3) mg/dL AST (14-36) U/L ALT (4-34) U/L Alkaline Phosphatase (38-126) U/L Troponin I <0.012 (0.000-0.034) ng/mL Total Protein (6.3-8.2) g/dL Albumin (3.5-5.0) g/dL Lipase (23-300) U/L Disposition Clinical Impression: Chest pain Disposition: HOME SELF-CARE Condition: Good Instructions (If sedation given, give patient instructions): Chest Pain (ED) Is patient prescribed a controlled substance at d/c from ED?: No Referrals: Xavier Sousa DO [Primary Care Provider] - 1-2 days Time of Disposition: 14:39
[2023-05-03 12:54] LABS: Basophils # (A) 0.1 k/uL (0-0.2); Basophils % (A) 1 %; Eosinophils # (A) 0.3 k/uL (0-0.7); Eosinophils % (A) 4 %; HCT 36.3 % (34.0-46.0); HGB 12.5 gm/dL (11.4-16.0); Lymphocytes # (A) 3.5 k/uL (1.0-4.8); Lymphocytes % (A) 42 %; MCH 31.6 pg (25.0-35.0); MCHC 34.5 g/dL (31.0-37.0); MCV 91.5 fL (80.0-100.0); Mean Platelet Volume 8.7; Monocytes # (A) 0.4 k/uL (0-1.0); Monocytes % (A) 5 %; Neutrophils # (A) 3.8 k/uL (1.3-7.7); Neutrophils % (A) 46 %; Platelet Count 294 k/uL (150-450); RBC 3.96 m/uL (3.80-5.40); RDW 12.4 % (11.5-15.5); WBC 8.3 k/uL (3.8-10.6)
[2023-05-03 13:07] LABS: INR 0.9 (<1.2); Partial Thromboplastin Time 23.3 sec (22.0-30.0); Prothrombin Time 9.8 sec (10.0-12.5)
[2023-05-03 13:11] LABS: ALT 24 U/L (4-34); AST 26 U/L (14-36); African American GFR (CKD) 87 (>60 ml/min/1.73 sqM); Albumin 4.5 g/dL (3.5-5.0); Alkaline Phosphatase 59 U/L (38-126); Anion Gap 12 mmol/L; Blood Urea Nitrogen 22 mg/dL (7-17); Calcium 9.8 mg/dL (8.4-10.2); Carbon Dioxide 24 mmol/L (22-30); Chloride 104 mmol/L (98-107); Glucose 97 mg/dL (74-99); Lipase 313 U/L (23-300); Magnesium 1.9 mg/dL (1.6-2.3); Non-African American GFR(CKD) 75 (>60 ml/min/1.73 sqM); Sodium 140 mmol/L (137-145); Total Bilirubin 0.6 mg/dL (0.2-1.3); Total Protein 7.5 g/dL (6.3-8.2)
--- NOTE | 2023-05-03 13:19 | XR ---
EXAMINATION TYPE: XR chest 2V DATE OF EXAM: 05/03/2023 1:09 PM CLINICAL INDICATION:Female, 57 years old with history of Chest Pain; COMPARISON: Chest radiographs from 05/03/2023 TECHNIQUE: XR chest 2V Frontal and lateral views of the chest. FINDINGS: Lungs/Pleura: There is no evidence of pleural effusion, focal consolidation, or pneumothorax. Pulmonary vascularity: Unremarkable. Heart/mediastinum: Cardiomediastinal silhouette is unremarkable. Musculoskeletal: No acute osseous pathology. IMPRESSION: No acute cardiopulmonary disease/process.
--- NOTE | 2023-05-03 14:08 | CT ---
EXAMINATION TYPE: CT angio chest CT DLP: 353.9 mGycm, Automated exposure control for dose reduction was used. DATE OF EXAM: 05/03/2023 1:58 PM COMPARISON: Chest radiograph from same day. CLINICAL INDICATION:Female, 57 years old with history of CP/pos dimer; Chest pain, positive D-Dimer TECHNIQUE/CONTRAST: CTA scan of the thorax is performed without and with IV Contrast, patient injected with 100 ml mL of Isovue 300, MIP images are created and reviewed these are created on a separate workstation.. FINDINGS: Pulmonary Artery: There is no evidence for a filling defect within the pulmonary vasculature to sugge st acute pulmonary embolism. The pulmonary artery is of normal size. Lungs/Pleura: No evidence of focal consolidation, pleural effusion or pneumothorax. Airway: Large airways are patent. Heart: Heart is within normal limits for size. Vasculature: No evidence of aortic aneurysm. Mediastinum: No gross evidence of adenopathy. Musculoskeletal: Moderate degenerative disc disease changes are present throughout the thoracolumbar spine. Soft Tissues: Unremarkable. Lower neck: No significant findings. Upper Abdomen: No significant findings. IMPRESSION: No evidence of pulmonary embolism.
[2023-05-03 14:50] VITALS: BP 166/86; PULSE 75; TEMP 98.8
== END 2023-05-03 14:49 | disposition home or self-care (01) ==
LOC: EC 11:56
DX: R07.9 Chest pain, unspecified (principal); R00.1 Bradycardia, unspecified; E78.5 Hyperlipidemia, unspecified; I10 Essential (primary) hypertension; Z87.891 Personal history of nicotine dependence; Z79.899 Other long term (current) drug therapy
CPT/HCPCS: 36415; 93005; 85379; 80053; 83690; 83735; 84484; 85025; 85610; 85730; 71046; 71275; 99285; Q9967

== ENCOUNTER → 2023-11-18 | Outpatient (CLI) | payer BC ==
--- NOTE | 2023-11-20 12:06 | MM ---
Reason for Exam: Screening (asymptomatic). Last mammogram was performed 3 year(s) and 7 month(s) ago. Patient History: Menarche at age 11. First Full-Term at age 17. Postmenopausal. Risk Values: Cee 5 year model risk: 1.0%. NCI Lifetime model risk: 5.5%. Prior Study Comparison: 04/19/2020 Bilateral Screening Mammogram, [facility]. 11/21/2020 Right Diagnostic Mammogram, [facility]. Tissue Density: The breasts are heterogeneously dense, which may obscure small masses. Findings: Analyzed By CAD. There is no suspicious group of microcalcifications or new suspicious mass in either breast. Benign-appearing calcifications. Stable benign-appearing nodular lymph node upper outer right breast. Overall Assessment: Benign, BI-RAD 2 Management: Screening Mammogram of both breasts in 1 year. . Patient should continue monthly self-breast exams. A clinical breast exam by your physician is recommended on an annual basis. This exam should not preclude additional follow-up of suspicious palpable abnormalities. Note on Cee scores and lifetime risk: 1. A Cee score greater than 3% is considered moderate risk. If this is the case, consider specialist referral to assess eligibility for a risk reducing agent. 2. If overall lifetime risk for the development of breast cancer is 20% or higher, the patient may qualify for future screening with alternating mammogram and breast MRI. Electronically signed and approved by: Preston Peace M.D. Radiologis
== END | disposition home or self-care (01) ==
LOC: RADMAMWWP 15:06
PROVIDERS: ATTEND Obstetrics & Gynecology
DX: Z12.31 Encounter for screening mammogram for malignant neoplasm of breast (principal); Z78.0 Asymptomatic menopausal state
CPT/HCPCS: 77063; 77067

== ENCOUNTER → 2023-12-02 | Outpatient (CLI) | payer BC ==
--- NOTE | 2023-12-02 12:24 | XR ---
EXAMINATION TYPE: XR lumbosacral spine min 4V DATE OF EXAM: 12/02/2023 11:16 AM CLINICAL INDICATION:Female, 58 years old with history of LBP,KNEE PAIN; [facility] COMPARISON: None TECHNIQUE: XR lumbosacral spine min 4V - Frontal, lateral , bilateral oblique and coned in L5-S1 late ral views of the spine. FINDINGS: No evidence of any acute osseous pathology. No evidence of loss of vertebral body height i s seen. There is grade 1 and calyces of L4 and L5 alignment of the lumbar vertebral bodies. Mild scat tered disc space narrowing. Multilevel marginal osteophyte formation throughout the visualized spine. There is facet joint arthropathy throughout the spine. Scattered at least mild neural foraminal sten osis. IMPRESSION: 1. No acute fracture. 2. Moderate multilevel disc degeneration. 3. Grade 1 anterolisthesis of L4 and L5.
--- NOTE | 2023-12-02 12:27 | XR ---
EXAMINATION TYPE: XR knee complete RT DATE OF EXAM: 12/02/2023 11:16 AM CLINICAL INDICATION:Female, 58 years old with history of LBP,KNEE PAIN; [facility] COMPARISON: None. TECHNIQUE: XR knee complete RT; examined in Frontal, lateral and oblique projections. FINDINGS: No evidence of any acute osseous pathology, soft tissue swelling, or joint effusion is no davide. Tricompartmental osteophyte formation involving the femoral condyles, tibial plateau and patella . Mild joint space narrowing. IMPRESSION: 1. No acute osseous pathology. 2. Mild tricompartmental osteoarthritic changes.
== END | disposition home or self-care (01) ==
LOC: RADXRYALE 10:48
PROVIDERS: ATTEND Family Medicine
DX: M51.17 Intervertebral disc disorders with radiculopathy, lumbosacral region (principal); M17.11 Unilateral primary osteoarthritis, right knee; M43.16 Spondylolisthesis, lumbar region
CPT/HCPCS: 72110

== ENCOUNTER → 2023-12-11 | Outpatient (CLI) | payer BC ==
--- NOTE | 2023-12-13 07:10 | MR ---
EXAMINATION TYPE: MR lumbar spine wo con DATE OF EXAM: 12/11/2023 COMPARISON: Lumbar spine x-ray December 02, 2023 HISTORY: Low back pain that radiates down right leg for months TECHNIQUE: Multiplanar, multisequence imaging of the lumbar spine is performed without IV contrast. FINDINGS: Sagittal images of the lumbar spine show vertebral body heights to appear satisfactory. The re is grade 1 anterolisthesis L4 on L5. Multilevel disc desiccation is present. Mild disc space narr owing at L3-L4 level. The conus medullaris is normal in position and signal ending at mid L1 level. T here is mild to moderate disc space narrowing and anterior spurring with heterogeneous multinodular t ype II endplate changes at the anterior T11-T12 level. Small posterior disc herniations in the lower thoracic spine effaces the anterior thecal sac on sagittal images. Axial images show T12-L1 and L1-L2 levels to appear within normal limits. Axial images at L2-L3 level show mild to moderate broad disc bulge mildly effacing the anterior theca l sac. There is mild left greater than right bilateral anterior inferior neural foraminal narrowing. Mild facet arthropathy bilaterally is seen. Axial images at L3-L4 level shows mild to moderate facet arthropathy and ligamentum flavum hypertroph y. There is [id number] broad disc bulge effacing the anterior thecal sac. There is pbml-by-envs rate bilateral anterior inferior neural foraminal narrowing. Axial images at L4-L5 level show spondylolisthesis with moderate facet arthropathy and ligamentum fla vum hypertrophy effacing the lateral thecal sac bilaterally. There is mild bilateral neural foraminal narrowing. Axial images at L5-S1 level show mild facet arthropathy bilaterally. There is broad-based left parace ntral/foraminal disc protrusion causing asymmetric [id number] left-sided neural foraminal narro wing. Right-sided neural foramen is patent. Spinal canal is preserved. Anterior axis to both kidneys is present. Paraspinal muscle bulk is maintained bilaterally. IMPRESSION: Multilevel degenerative changes of the lumbar spine are present as detailed above.
== END | disposition home or self-care (01) ==
LOC: RADMRIMAIN 19:14
PROVIDERS: ATTEND Family Medicine
DX: M47.816 Spondylosis without myelopathy or radiculopathy, lumbar region (principal)
CPT/HCPCS: 72148

== ENCOUNTER → 2024-01-07 | Outpatient (CLI) | payer BC ==
[2024-01-07 08:04] VITALS: BP 163/84; PULSE 71; RESP 16
--- NOTE | 2024-01-07 14:46 | P.PAINPG ---
PQRS Measure Charge Sheet Comment: HISTORY OF PRESENT ILLNESS: A 58 yr old female w at side as a referral from Dr Zhao presents today w severe and chronic LBP > 3 mo secondary to DDD, spondylosis and facet arthropathy without myelopathy for evaluation. Pt states pain level is provoked at 6 /10 in intensity, constant, localized in the lumbar spine, predominantly axial, stabbing in character w occasional shooting pain down the back of the RLE. Pain is provoked by weight bearing activity. Pain is alleviated by chiropractic treatments x 8 wks in 2022, physician guided home exercises/ stretches every other day since 2022, medications (Ibu, Tyl), topical, repositioning and rest . Oswestry axial pain score at 17. PMH: OA, Hyperlipidemia, HTN, Asthma PSH: Section, R [facility] (2019) SH: Former tobacco user, Occasional ETOH use, No illicit drug use FH: Non contributory All: See list Meds: See list REVIEW OF ORGAN SYSTEMS: CONSTITUTIONAL: No fevers or chills. No recent weight loss. NEUROLOGICAL: + numbness and tingling along the distal extremities. No seizure disorders or headaches. MUSCULOSKELETAL: + pain PSYCHIATRIC: Denies current depression or suicidal thoughts. Physical Examinations : Constitutional : Cooperative , not in acute distress . Neurologic : Cranial nerve II to XII intact. No focal neurological deficits. Psychiatric : alert & oriented x 3. Matching mood & appropriate affect. Judgment & insight intact. Musculoskeletal : Cervical Spine Motor strength in the deltoid and biceps: Normal right side. Normal Left side Motor strength biceps and the wrist extensors: Normal right side . Normal left side Motor strength in the triceps muscle: Normal right side. Normal left side Deep tendon reflexes: Normal at the biceps. Normal at Brachioradialis. Normal at triceps Vertebral body tenderness to deep palpation over Cervical facet loading test: positive bilaterally Spurling test: positive bilaterally Neck distraction test: positive bilaterally Gio sign: positive bilaterally Lumbar spine Motor strength lower extremities ,thigh and legs 5/5 Right side , 5/5 Left side Deep tendon reflexes : Normal Knee Jerk. Normal Ankle Jerk Vertebral body tenderness over L5 Conner Test positive R> L L5-S1 Lumbar facet Loading Test: positive Right / positive Left Range of motion of the lumbar spine Flexion 30 degrees, extension 10 degrees Straight Leg Raise test: Left/ Right positive at degrees Shreyas test: positive right / positive left. Severe tenderness over the Sacroiliac joint on the Right / Left sides Gaenslen test: positive bilaterally Seated flexion test: positive bilaterally. Sacral spine : Severe tenderness over the Sacroiliac joint: right side / left side Range of motion: Flexion of the lumbar spine <60 degrees Range of motion: Extension of the lumbar spine <20 degrees Gaenslen's Test positive Shreyas test: positive right side / left side Thigh Thrust Test Sacral Thrust Test Imaging: MRI non contrast of the lumbar spine from 12/11/23 reviewed Assessment/ Plan : Lumbar DDD Recommendation of MARIA ISABEL L5-S1 #1. Risks, benefits of procedure discussed and patient verbalized understanding. Admits to anti- coagulant use or medical history of diabetes. Protocol for discontinuation/ continuation of medications naheed procedure discussed. Minimal anesthesia provided, if clinically indicated, consisting of Versed and Fentanyl. All questions answered. I have spent greater than 30 minutes on patient care today. Dr Fairchild was available by phone for the evaluation of this patient. The time was used to review the medical records including relevant urine studies and Prescription history (MAPs), review of the available imaging, evaluation and examination of the patient, coordination of care with the medical staff and if applicable referring physicians, as well as creation of the medical record Home Medications: Ambulatory Orders Cetirizine HCl [Zyrtec] 10 mg PO DAILY 04/27/20 Losartan Potassium [Cozaar] 100 mg PO DAILY 04/27/20 Montelukast [Singulair] 10 mg PO HS 04/27/20 Multivit with Calcium,Iron,Min [Women's Multivitamin] 1 each PO DAILY 04/27/20 Naprosyn (Unknown Dose) 1 tab PO DIRECTED PRN 04/27/20 [place]-3 Fatty Acids/Fish Oil [Fish Oil 1,000 mg Softgel] 1 each PO DAILY 04/27/20 Pravastatin Sodium [Pravachol] 20 mg PO HS 04/27/20 hydroCHLOROthiazide 25 mg PO DAILY 04/27/20 traMADol HCl [Ultram] 50 mg PO Q6H PRN #10 tab 05/02/20 HYDROcodone/APAP 7.5-325MG [[place] 7.5] 1 each PO Q6HR PRN #28 tab 12/26/20 Controlled Substance Measures - Controlled Substance Measures Is patient prescribed a controlled substance at discharge?: No
== END ==
LOC: PNWHC3 07:45
PROVIDERS: ATTEND Specialist
DX: M99.63 Osseous and subluxation stenosis of intervertebral foramina of lumbar region (principal); M51.37 Other intervertebral disc degeneration, lumbosacral region; Z87.891 Personal history of nicotine dependence
CPT/HCPCS: 99202

== ENCOUNTER 2024-02-04 06:12 | Day surgery (SDC) | payer BC ==
[2024-02-04] MEDS ORDERED: LACTATED RINGERS 1,000 ML IV SCH (06:24)
[2024-02-04 06:29] VITALS: RESP 18; TEMP 97.1
[2024-02-04] MEDS ORDERED: IOPAMIDOL M200 10 ML VIAL ONE (07:02)
[2024-02-04] MEDS ORDERED: methylPREDNISolone ACETATE 80 MG/ML 1 ML VIAL ONE (07:02)
--- NOTE | 2024-02-04 07:08 | P.PCN ---
Date of Procedure: 02/04/24 Procedure(s) Performed: PREOPERATIVE DIAGNOSIS: 1- Lumbar Degenerative Disc Diseases 2-Lumbar spondylosis with Facet arthropathy without myelopathy. 3-lumbar spinal stenosis POSTOPERATIVE DIAGNOSIS: 1-lumbar degenerative disc disease. 2-lumbar spondylosis with facet arthropathy without myelopathy. 3-lumbar spinal stenosis. PROCEDURE 1. Lumbar epidural steroid injection under fluoroscopic guidance at the L5-S1 level. (Fluoroscopy imaging was available in radiology department) 2. Lumbar epidurogram. ANESTHESIA: Lidocaine 1% 3 and then only. EBL: Minimal PROCEDURE INDICATION: The patient with low back pain and radiculitis symptoms unresponsive to conservative treatment. Fluoroscopy was used to optimize visualization of the needle placement and to maximize safety. PROCEDURE DESCRIPTION / TECHNIQUE: The patient was seen and identified in the preoperative area. Risks, benefits, complications including but not limited to infections ,bleeding ,allergic reaction to the medications ,nerve damage and not complete pain releife , and alternatives were discussed with the patient. The patient agreed to proceed with the procedure and signed the consent, and vital signs were stable. Patient was taken to the OR and time out was completed. The patient was placed in the prone position on procedure table and a pillow was placed under the abdomen to reduce lumbar lordosis. The lumbosacral area was prepped and draped in the usual sterile fashion.ere closely monitored during the procedure. Vital signs was monitered during the entire procedure. Using anterior-posterior fluoroscopy, the L5-S1 interlaminar space was identified and the skin over this site was marked and then infiltrated with 1% lidocaine subcutaneously. Subsequently, a 20-gauge Tuohy epidural needle was inserted and advanced toward the epidural space using the ``Loss of resistance technique and guided by AP and lateral fluoroscopy. The correct needle position in the epidural space was verified with the injection of 2 mL of the water soluble contrast dye Isovue 200 contrast and observing an excellent epidurogram with the epidural spread of the dye, after negative aspiration for blood and CSF and in the absence of paresthesias. Again after negative aspiration, a 6 ml mixture containing 80 mg of Depo-medrol ( Preservetive Free ), and 2 ml of preservative free Normal Saline, and 2 ml of preservative free lidocaine 1% solution was injected and a washout of epidurogram was seen. Needle was withdrawn intact, skin was cleansed, and bandages were applied. COMPLICATIONS: None DISPOSITION / PLANS: The patient was placed in a supine position and transferred to the recovery area in a stable condition for observation. There was no evidence of lower extremity motor or sensory deficit after the procedure. Patient was discharged from the recovery room after meeting discharge criteria. Home discharge instructions were given to the patient by the staff. The patient was reexamined prior to discharge. The patient will schedule a follow up in the clinic in 2-4 weeks.
[2024-02-04 07:34] VITALS: BP 134/81; PULSE 64
--- NOTE | 2024-02-04 07:50 | FL ---
Fluoroscopy History: SHEEBA fl 1.6 dap [id number] sheeba
== END 2024-02-04 07:38 | disposition home or self-care (01) ==
LOC: ORPAIN 06:12
PROVIDERS: ATTEND Specialist
DX: M48.061 Spinal stenosis, lumbar region without neurogenic claudication (principal); M47.26 Other spondylosis with radiculopathy, lumbar region; M51.16 Intervertebral disc disorders with radiculopathy, lumbar region; I10 Essential (primary) hypertension; Z79.1 Long term (current) use of non-steroidal anti-inflammatories (NSAID)
CPT/HCPCS: 62323; Q9966; J1010

== ENCOUNTER → 2024-02-24 | Outpatient (CLI) | payer BC | LOC: PNWHC3 14:15 | PROVIDERS: ATTEND Specialist | DX: M54.16 Radiculopathy, lumbar region | CPT/HCPCS: 99211 ==

== ENCOUNTER 2024-03-04 12:45 | Day surgery (SDC) | payer BC ==
[2024-03-04] MEDS ORDERED: LACTATED RINGERS 1,000 ML BAG ONE (13:00)
[2024-03-04] MEDS ORDERED: ROPIVACAINE 5MG/ML 20ML VIAL ONE (13:29)
[2024-03-04] MEDS ORDERED: fentaNYL (PF) 50 MCG/ML 2 ML AMP ONE (13:29)
[2024-03-04] MEDS ORDERED: MIDAZOLAM 2 MG/2 ML VIAL ONE (13:29)
--- NOTE | 2024-04-12 18:20 | FL ---
EXAMINATION TYPE: FL guided pain mgmt statistic DATE OF EXAM: 03/15/2024 10:32 AM COMPARISON: Pre Operative Images if available both CT/MRI or plain film CLINICAL INDICATION: Female, 58 years old with history of RED LUMBAR FB; TECHNIQUE: FL guided pain mgmt statistic, multiple fluoroscopic images provided for procedure. Total fluoroscopy time: 8 seconds Total submitted images to PACS: 4 DAP: [id number] mGym2 Gycm2 uGym2 cGycm2 or equivalent. FINDINGS: Fluoroscopic images during injection for pain management demonstrate multilevel degeneration changes throughout the spine. No evidence for fracture. No acute process identified. IMPRESSION: 1. No evidence for intraoperative complication. 2. Please see the operative/procedural note for further details. [facility], , 04/12/2024 6:17 PM
== END 2024-03-04 14:05 ==
LOC: ORPAIN 12:45
PROVIDERS: ATTEND Specialist
DX: M47.816 Spondylosis without myelopathy or radiculopathy, lumbar region (principal); Z79.899 Other long term (current) drug therapy

== ENCOUNTER → 2024-03-21 | Outpatient (CLI) | payer BC ==
[2024-03-21 07:54] VITALS: BP 150/88; PULSE 70; RESP 16; TEMP 98.4
--- NOTE | 2024-03-21 13:31 | P.PAINPG ---
Objective - Vital Signs Vital signs: Vital Signs Temp 98.4 F 03/21/24 07:51 Pulse 70 03/21/24 07:51 Resp 16 03/21/24 07:51 BP 150/88 03/21/24 07:51 Pulse Ox 99 03/21/24 07:51 FiO2 PQRS Measure Charge Sheet Mode of Arrival: Ambulatory Comment: HISTORY OF PRESENT ILLNESS: A 58 yr old female w at side presents today w severe and chronic LBP > 3 mo secondary to DDD, spondylosis and facet arthropathy without myelopathy for evaluation s/p BL MBB L4-L5/ L5-S1 #1. Pt states she experienced 80 % pain relief x 4 hrs s/p procedure. Pt states pain level is provoked at 6 /10 in intensity, constant, localized in the lumbar spine, predominantly axial, stabbing in character w occasional shooting pain down the back of the RLE. Pain is provoked by weight bearing activity. Pain is alleviated by chiropractic gary tments x 8 wks in 2022, physician guided home exercises/ stretches every other day since 2022, medications, topical, repositioning and rest . Interventional procedures include MARIA ISABEL L5-S1 x1, BL MBB L3-L5 x1 Medications include Ibu, Tyl REVIEW OF ORGAN SYSTEMS: CONSTITUTIONAL: No fevers or chills. No recent weight loss. NEUROLOGICAL: + numbness and tingling along the distal extremities. No seizure disorders or headaches. MUSCULOSKELETAL: + pain PSYCHIATRIC: Denies current depression or suicidal thoughts. Physical Examinations : Constitutional : Cooperative , not in acute distress . Neurologic : Cranial nerve II to XII intact. No focal neurological deficits. Psychiatric : alert & oriented x 3. Matching mood & appropriate affect. Judgment & insight intact. Musculoskeletal : Cervical Spine Motor strength in the deltoid and biceps: Normal right side. Normal Left side Motor strength biceps and the wrist extensors: Normal right side . Normal left side Motor strength in the triceps muscle: Normal right side. Normal left side Deep tendon reflexes: Normal at the biceps. Normal at Brachioradialis. Normal at triceps Vertebral body tenderness to deep palpation over Cervical facet loading test: positive bilaterally Spurling test: positive bilaterally Neck distraction test: positive bilaterally Gio sign: positive bilaterally Lumbar spine Motor strength lower extremities ,thigh and legs 5/5 Right side , 5/5 Left side Deep tendon reflexes : Normal Knee Jerk. Normal Ankle Jerk Vertebral body tenderness over L5 Conner Test positive R> L L5-S1 Lumbar facet Loading Test: positive Right / positive Left L4-L5, L5-S1 Range of motion of the lumbar spine Flexion 30 degrees, extension 10 degrees Straight Leg Raise test: Left/ Right positive at degrees Shreyas test: positive right / positive left. Severe tenderness over the Sacroiliac joint on the Right / Left sides Gaenslen test: positive bilaterally Seated flexion test: positive bilaterally. Sacral spine : Severe tenderness over the Sacroiliac joint: right side / left side Range of motion: Flexion of the lumbar spine <60 degrees Range of motion: Extension of the lumbar spine <20 degrees Gaenslen's Test positive Shreyas test: positive right side / left side Thigh Thrust Test Sacral Thrust Test Imaging: MRI non contrast of the lumbar spine from 12/11/23 reviewed Assessment/ Plan : Lumbar DDD Recommendation of BL MBB L4-L5/ L5-S1 #2. Risks, benefits of procedure discussed and patient verbalized understanding. Admits to anti- coagulant use or medical history of diabetes. Protocol for discontinuation/ continuation of medications naheed procedure discussed. Minimal anesthesia provided, if clinically indicated, consisting of Versed and Fentanyl. All questions answered. I have spent greater than 30 minutes on patient care today. Dr Fairchild was available by phone for the evaluation of this patient. The time was used to review the medical records including relevant urine studies and Prescription history (MAPs), review of the available imaging, evaluation and examination of the patient, coordination of care with the medical staff and if applicable referring physicians, as well as creation of the medical record - Pain Location Lower Back Pharmacological Interventions: Block, Medication, PRN Medication PQRS Narrative: Blood Pressure 150/88 Pain Intensity [Lower Back] 5 Scale Used Numeric (1 - 10) Hx Alcohol Use (MH) No Home Medications: Ambulatory Orders Cetirizine HCl [Zyrtec] 10 mg PO DAILY PRN 04/27/20 Montelukast [Singulair] 10 mg PO HS 04/27/20 Multivit with Calcium,Iron,Min [Women's Multivitamin] 1 each PO DAILY 04/27/20 Naprosyn (Unknown Dose) 1 tab PO DIRECTED PRN 04/27/20 Pravastatin Sodium [Pravachol] 20 mg PO HS 04/27/20 traMADol HCl [Ultram] 50 mg PO Q6H PRN #10 tab 05/02/20 Losartan/Hydrochlorothiazide [Losartan-Hctz 100-25 mg Tab] 1 tab PO DAILY 02/03/24 Omeprazole 40 mg PO DAILY 02/03/24 Controlled Substance Measures - Controlled Substance Measures Is patient prescribed a controlled substance at discharge?: No
== END ==
LOC: PNWHC3 07:38
PROVIDERS: ATTEND Specialist
DX: M47.816 Spondylosis without myelopathy or radiculopathy, lumbar region
CPT/HCPCS: 99211

== ENCOUNTER 2024-04-07 07:25 | Day surgery (SDC) | payer BC ==
[2024-04-01 13:06] VITALS: BMI 32.2
[2024-04-07 07:52] VITALS: RESP 16; TEMP 97.3
[2024-04-07] MEDS: IV FLUID CONTINUATION 1,000 ML IV ONE ×2 (08:01→08:35)
[2024-04-07] MEDS: LACTATED RINGERS 1,000 ML IV SCH (08:02)
[2024-04-07] MEDS ORDERED: ROPIVACAINE 5MG/ML 20ML VIAL ONE (08:41)
[2024-04-07] MEDS ORDERED: fentaNYL (PF) 50 MCG/ML 2 ML AMP ONE (08:41)
[2024-04-07] MEDS ORDERED: MIDAZOLAM 2 MG/2 ML VIAL ONE (08:41)
--- NOTE | 2024-04-07 08:54 | P.PCN ---
Date of Procedure: 04/07/24 Procedure(s) Performed: PREOPERATIVE DIAGNOSIS : 1- Lumbar spondylosis with Facet Arthropathy without myelopathy . 2- Lumber degenerative disc disease POSTOPERATIVE DIAGNOSIS: 1- Lumbar spondylosis with Facet Arthropathy without myelopathy . 2- Lumber degenerative disc disease PROCEDURE: Diagnostic bilateral L3 , L4 , and L5 medial branch block under fluoroscopy guidance(fluoroscopy images available in the radiology Department ) ( To target the facet joint between Bilateral L4-5 , and L5-S1 )#2nd ANESTHESIA: moderate sedation with intravenous Versed 2 mg and Fentanyl 100 mcg. (Sedation start time 08:41,ended 08:50 ) EBL: Minimal COMPLICATION: None PROCEDURE INDICATION: Chronic low back pain secondary to Facet arthropathy unresponsive to conservative treatment. PROCEDURE DESCRIPTION: the patient was seen and identified in the preop holding area , risks and benefits and possible complications of the procedure and alternative were discussed with the patient, and the patient agreed to proceed with the procedure and signed the consent and vital signs monitored during the procedure and fluoroscopy was used to maximize the benefit and accuracy of the needle placement, and sedation was given to decrease patient anxiety, patient was taken to the procedure room and placed in prone position vital signs monitored in the back prepped with chlorhexidine X3 then under strict sterile technique using a right oblique fluoroscopy ,the junction of the transverse process and the superior articulating process of the right L3 , L4 , and L5 vertebra which corresponding to the fluoroscopy image of the eye of the Case dog on the block side for the medial branches and subsequently , after local infiltration of skin and subcu tissuies with Ropivacaine 0.5 % , one mL at each level ,then 22-gauge Quincke-type needles , 3 needle was used , each one of them placed at the junction of the base of the transverse process and the superior articular process at the appropriate level, and the needle was advanced until the periosteum contacted, needle placement confirmed with AP oblique and lateral view and after appropriate needle placement confirmed, and after negative aspiration for heme and CSF and there was no paresthesia 1-1/2 mL of Ropivacaine 0.5% , then half mL injected at each level after negative aspiration the needle subsequently removed and the same procedure repeated for the left side at left side at L3 , L4 and L5 levels. At the end of the procedure and the needles removed and a bandage applied after the skin was cleaned the cleaning solution patient taken to recovery room in stable condition and monitors in the recovery room for 20-30 minutes and discharged home in stable condition after discharge criteria met and patient will follow up with the pain clinic in 2-4 weeks
[2024-04-07] MEDS: IV FLUID CONTINUATION 800 ML IV ONE (08:58)
[2024-04-07 09:20] VITALS: BP 118/62; PULSE 59
--- NOTE | 2024-04-12 18:22 | FL ---
EXAMINATION TYPE: FL guided pain mgmt statistic DATE OF EXAM: 04/07/2024 8:59 AM COMPARISON: Pre Operative Images if available both CT/MRI or plain film CLINICAL INDICATION: Female, 58 years old with history of FACET BLOCK BILAT LUMBAR,PAIN; TECHNIQUE: FL guided pain mgmt statistic, multiple fluoroscopic images provided for procedure. Total fluoroscopy time: 8.6 seconds Total submitted images to PACS: 4 DAP: [id number] mGym2 Gycm2 uGym2 cGycm2 FINDINGS: Fluoroscopic images during injection for pain management demonstrate multilevel degeneration changes throughout the spine. No evidence for fracture. No acute process identified. IMPRESSION: 1. No evidence for intraoperative complication. 2. Please see the operative/procedural note for further details. [facility], , 04/12/2024 6:19 PM
== END 2024-04-07 09:38 | disposition home or self-care (01) ==
LOC: ORPAIN 07:25
PROVIDERS: ATTEND Specialist
DX: M47.816 Spondylosis without myelopathy or radiculopathy, lumbar region
CPT/HCPCS: 99152

== ENCOUNTER → 2024-04-14 | Outpatient (CLI) | payer BC ==
[2024-04-14 08:34] VITALS: BP 145/69; PULSE 63; RESP 16; TEMP 97.1
--- NOTE | 2024-04-14 14:58 | P.PAINPG ---
PQRS Measure Charge Sheet Comment: HISTORY OF PRESENT ILLNESS: A 58 yr old female w at side presents today w severe and chronic LBP > 3 mo secondary to DDD, spondylosis and facet arthropathy without myelopathy for evaluation s/p BL MBB L4-L5/ L5-S1 #2. Pt states she experienced 100 % pain relief x 24 hrs s/p procedure. Pt states pain level is provoked at 8 /10 in intensity, constant, localized in the lumbar spine, predominantly axial, stabbing in character w occasional shooting pain down the back of the RLE. Pain is provoked by weight bearing activity. Pain is alleviated by chiropractic treatments x 8 wks in 2022, physician guided home exercises/ stretches every other day since 2022, medications, topical, repositioning and rest . Pt requested a short course of [place] 5/325mg #18 stating "it doesn't take the pain away, just the edge off." Pt was previously on Tramadol prior to procedures. Interventional procedures include MARIA ISABEL L5-S1 x1, BL MBB L3-L5 x2 Medications include Ibu, Tyl REVIEW OF ORGAN SYSTEMS: CONSTITUTIONAL: No fevers or chills. No recent weight loss. NEUROLOGICAL: + numbness and tingling along the distal extremities. No seizure disorders or headaches. MUSCULOSKELETAL: + pain PSYCHIATRIC: Denies current depression or suicidal thoughts. Physical Examinations : Constitutional : Cooperative , not in acute distress . Neurologic : Cranial nerve II to XII intact. No focal neurological deficits. Psychiatric : alert & oriented x 3. Matching mood & appropriate affect. Judgment & insight intact. Musculoskeletal : Cervical Spine Motor strength in the deltoid and biceps: Normal right side. Normal Left side Motor strength biceps and the wrist extensors: Normal right side . Normal left side Motor strength in the triceps muscle: Normal right side. Normal left side Deep tendon reflexes: Normal at the biceps. Normal at Brachioradialis. Normal at triceps Vertebral body tenderness to deep palpation over Cervical facet loading test: positive bilaterally Spurling test: positive bilaterally Neck distraction test: positive bila terally Gio sign: positive bilaterally Lumbar spine Motor strength lower extremities ,thigh and legs 5/5 Right side , 5/5 Left side Deep tendon reflexes : Normal Knee Jerk. Normal Ankle Jerk Vertebral body tenderness over L5 Conner Test positive R> L L5-S1 Lumbar facet Loading Test: positive Right / positive Left L4-L5, L5-S1 Range of motion of the lumbar spine Flexion 30 degrees, extension 10 degrees Straight Leg Raise test: Left/ Right positive at degrees Shreyas test: positive right / positive left. Severe tenderness over the Sacroiliac joint on the Right / Left sides Gaenslen test: positive bilaterally Seated flexion test: positive bilaterally. Sacral spine : Severe tenderness over the Sacroiliac joint: right side / left side Range of motion: Flexion of the lumbar spine <60 degrees Range of motion: Extension of the lumbar spine <20 degrees Gaenslen's Test positive Shreyas test: positive right side / left side Thigh Thrust Test Sacral Thrust Test Imaging: MRI non contrast of the lumbar spine from 12/11/23 reviewed Assessment/ Plan : Lumbar DDD Recommendation of BL RFA L4-L5/ L5-S1. Risks, benefits of procedure discussed and patient verbalized understanding. Admits to anti- coagulant use or medical history of diabetes. Protocol for discontinuation/ continuation of medications naheed procedure discussed. Minimal anesthesia provided, if clinically indicated, consisting of Versed and Fentanyl. All questions answered. I have spent greater than 30 minutes on patient care today. Dr Fairchild was available by phone for the evaluation of this patient. The time was used to review the medical records including relevant urine studies and Prescription history (MAPs), review of the available imaging, evaluation and examination of the patient, coordination of care with the medical staff and if applicable referring physicians, as well as creation of the medical record PQRS Narrative: Hx Alcohol Use (MH) No Home Medications: Ambulatory Orders Cetirizine HCl [Zyrtec] 10 mg PO DAILY PRN 04/27/20 Montelukast [Singulair] 10 mg PO HS 04/27/20 Multivit with Calcium,Iron,Min [Women's Multivitamin] 1 each PO DAILY 04/27/20 Naprosyn (Unknown Dose) 1 tab PO DIRECTED PRN 04/27/20 Pravastatin Sodium [Pravachol] 20 mg PO HS 04/27/20 Losartan/Hydrochlorothiazide [Losartan-Hctz 100-25 mg Tab] 1 tab PO DAILY 02/03/24 Omeprazole 40 mg PO DAILY 02/03/24 Psyllium Husk [Metamucil] 0.4 gm PO DAILY 04/07/24 HYDROcodone/APAP 5-325MG [[place] 5-325] 1 tab PO Q4HR PRN 3 Days #18 tab 04/14/24 Controlled Substance Measures - Controlled Substance Measures Is patient prescribed a controlled substance at discharge?: Yes When asked, does pt state using other controlled substances?: No If prescribed controlled substance>3 days was MAPS reviewed?: Prescribed <3 Days
== END ==
LOC: PNWHC3 07:20
PROVIDERS: ATTEND Specialist
DX: M51.37 Other intervertebral disc degeneration, lumbosacral region (principal)
CPT/HCPCS: 99211

== ENCOUNTER 2024-04-29 06:07 | Day surgery (SDC) | payer BC ==
[2024-04-29] MEDS: IV FLUID CONTINUATION 1,000 ML IV ONE ×2 (06:28→07:46)
[2024-04-29 06:43] VITALS: TEMP 98
[2024-04-29] MEDS: LACTATED RINGERS 1,000 ML IV SCH (06:45)
[2024-04-29] MEDS ORDERED: MIDAZOLAM 2 MG/2 ML VIAL ONE (07:08)
[2024-04-29] MEDS ORDERED: fentaNYL (PF) 50 MCG/ML 2 ML AMP ONE (07:08)
[2024-04-29] MEDS ORDERED: ROPIVACAINE 5MG/ML 20ML VIAL ONE (07:08)
--- NOTE | 2024-04-29 07:50 | P.PCN ---
Description of Procedure: Preprocedure diagnosis. 1. Lumbar spondylosis with facet joint arthropathy without myelopathy. 2. Lumbar degenerative disc disease. Procedure diagnosis. 1. Lumbar spondylosis with facet joint arthropathy without myelopathy. Space 2. Lumbar degenerative disc disease. Procedure.Bilateral radiofrequency thermocoagulation L3, L4 and L5 medial branch, with fluoroscopic guidance (fluoroscopy images are available in the radiology department) (to Denervate the facet joint at bilateral L4- 5 and L5-S1 levels) Anesthesia. Moderate sedation with intravenous Versed 2 mg and fentanyl 100 g and local infiltration with Lidocaine. Continuous pulse OX,BP,EKG and verbal communication was maintained with patient. Time. EBL minimal. Procedure indication. The patient with low back pain secondary to lumbar facet arthropathy who he had more than 50% relief of her pain with previous diagnostic lumbar medial branch block with local anesthetics.The patient was seen and identified in the preoperative area. Risks: Benefits, complications, including but not limited to risk of infection, bleeding, ALLERGIC reaction to the medica tions and no complete pain relief and alternatives were discussed with the patient, the patient admitted to proceed with the procedure and signed the consent. Procedure description/technique. Patient was taken to the OR and timeout was completed. The patient was placed in prone position on the procedure table. The lumbar area was prepped and draped in the usual sterile fashion. After injecting 5 ml of 1% Lidocaine subcutaneously,using AP and then oblique, lateral view of fluoroscopy, 18-gauge 100 mm radiofrequency cannula with a 10 mm active tip was advanced and guided by fluoroscopy at the junction of supirior articular process with RIGHT ala of the sacrum, transverse process of L4&L5. Each site then underwent positive sensory testing with 50 Hz and 0-1 V and negative motor testing at 2.5 Hz and 0-3 V with local stimulation but no radicular symptoms down the leg. Thereafter each sites underwent radiofrequency thermocoagulation at 80C for 90 seconds after injecting 1 mL of preservative- free 0.5% ropivacaine. Repeat radiofrequency ablation was done at each points after rotating the needle 180 with same setting. This same procedure was repeated twice on the LEFT side at the junction of superior articular process with ala of sacrum,transverse process of L4, L5 with the same settings after positive sensory,negative motor stimulation and infiltration of 1.0 ml 5% Ropivacaine at each site . RF needles were taken out. At the end of the procedure the skin was cleansed and Band-Aids were applied. Disposition patient tolerated the procedure well. No complication. She was placed in supine position and transferred to the recovery area in stable condition for observation and was discharged home from recovery room after meeting discharge criteria. Discharge instructions given to the patient by the staff. The patient were examined prior to discharge the patient will schedule a follow-up in the clinic in 2-4 weeks.
--- NOTE | 2024-04-29 07:56 | FL ---
EXAMINATION TYPE: FL guided pain mgmt statistic DATE OF EXAM: 04/29/2024 7:49 AM COMPARISON: Pre Operative Images if available both CT/MRI or plain film CLINICAL INDICATION: Female, 58 years old with history of Shaheen Lumbar Rad Freq; TECHNIQUE: FL guided pain mgmt statistic, multiple fluoroscopic images provided for procedure. Total fluoroscopy time: 27.6 seconds Total submitted images to PACS: 4 DAP: [id number] mGym2 Gycm2 uGym2 cGycm2 or equivalent. FINDINGS: Fluoroscopic images during injection for pain management demonstrate multilevel degeneration changes throughout the spine. No evidence for fracture. No acute process identified. IMPRESSION: 1. No evidence for intraoperative complication. 2. Please see the operative/procedural note for further details. [facility], , 04/29/2024 7:54 AM
[2024-04-29 08:16] VITALS: BP 131/80; PULSE 66; RESP 20
== END 2024-04-29 08:17 | disposition home or self-care (01) ==
LOC: ORPAIN 06:07
PROVIDERS: ATTEND Pain Medicine Interventional Pain Medicine
DX: M47.816 Spondylosis without myelopathy or radiculopathy, lumbar region (principal)
CPT/HCPCS: 99152; 99153

== ENCOUNTER → 2024-05-18 | Outpatient (CLI) | payer BC ==
[2024-05-18 08:04] VITALS: BP 145/97; PULSE 67; RESP 16
--- NOTE | 2024-05-18 15:12 | P.PAINPG ---
PQRS Measure Charge Sheet Comment: HISTORY OF PRESENT ILLNESS: A 58 yr old female w at side presents today w severe and chronic LBP > 3 mo secondary to radiculopathy, spondylosis and facet arthropathy without myelopathy for evaluation s/p BL RFAB L4-L5/ L5-S1. Pt states she experienced >60 % pain relief s/p procedure. Pt states pain level is provoked at 7-8 /10 in intensity, constant, localized in the lumbar spine, predominantly axial, stabbing in character w occasional shooting pain down the back of the BLEs. Pain is provoked by weight bearing activity. Pain is alleviated by chiropractic treatments x 8 wks in 2022, physician guided home exercises/ stretches every other day since 2022, ice, medications, topical, repositioning and rest . Pt requested a short course of [place] 5/325mg #18 stating "it doesn't take the pain away, just the edge off." Pt was previously on Tramadol prior to procedures. Interventional procedures include MARIA ISABEL L5-S1 x1, BL RFA L3-L5 (Apr 2024) Medications include Ibu, Tyl REVIEW OF ORGAN SYSTEMS: CONSTITUTIONAL: No fevers or chills. No recent weight loss. NEUROLOGICAL: + numbness and tingling along the distal extremities. No seizure disorders or headaches. MUSCULOSKELETAL: + pain PSYCHIATRIC: Denies current depression or suicidal thoughts. Physical Examinations : Constitutional : Cooperative , not in acute distress . Neurologic : Cranial nerve II to XII intact. No focal neurological deficits. Psychiatric : alert & oriented x 3. Matching mood & appropriate affect. Judgment & insight intact. Musculoskeletal : Cervical Spine Motor strength in the deltoid and biceps: Normal right side. Normal Left side Motor strength biceps and the wrist extensors: Normal right side . Normal left side Motor strength in the triceps muscle: Normal right side. Normal left side Deep tendon reflexes: Normal at the biceps. Normal at Brachioradialis. Normal at triceps Vertebral body tenderness to deep palpation over Cervical facet loading test: positive bilaterally Spurling test: positive bilaterally Neck distraction test: positive bilaterally Gio sign: positive bilaterally Lumbar spine Motor strength lower extremities ,thigh and legs 5/5 Right side , 5/5 Left side Deep tendon reflexes : Normal Knee Jerk. Normal Ankle Jerk Vertebral body tenderness over L5 Conner Test positive R> L L5-S1 Lumbar facet Loading Test: positive Right / positive Left L4-L5, L5-S1 Range of motion of the lumbar spine Flexion 30 degrees, extension 10 degrees Straight Leg Raise test: Left/ Right positive at degrees Shreyas test: positive right / positive left. Severe tenderness over the Sacroiliac joint on the Right / Left sides Gaenslen test: positive bilaterally Seated flexion test: positive bilaterally. Sacral spine : Severe tenderness over the Sacroiliac joint: right side / left side Range of motion: Flexion of the lumbar spine <60 degrees Range of motion: Extension of the lumbar spine <20 degrees Gaenslen's Test positive Shreyas test: positive right side / left side Thigh Thrust Test Sacral Thrust Test Imaging: MRI non contrast of the lumbar spine from 12/11/23 reviewed Assessment/ Plan : Lumbar radiculopathy Recommendation of BL iliolumbar ligament injection #1 and medication management. Risks, benefits of procedure discussed and patient verbalized understanding. Protocol for discontinuation/ continuation of medications naheed procedure discussed. [place] 7.5/325mg #60 w 1 RF. Use, side effects adverse reactions, safe storage discussed. [place] 7.5/325mg #60 w 1 RF. All questions answered. I have spent greater than 30 minutes on patient care today. Dr Fairchild was available by phone for the evaluation of this patient. The time was used to review the medical records including relevant urine studies and Prescription history (MAPs), review of the available imaging, evaluation and examination of the patient, coordination of care with the medical staff and if applicable referring physicians, as well as creation of the medical record PQRS Narrative: Hx Alcohol Use (MH) No Home Medications: Ambulatory Orders Cetirizine HCl [Zyrtec] 10 mg PO DAILY PRN 04/27/20 Montelukast [Singulair] 10 mg PO HS 04/27/20 Multivit with Calcium,Iron,Min [Women's Multivitamin] 1 each PO DAILY 04/27/20 Naprosyn (Unknown Dose) 1 tab PO DIRECTED PRN 04/27/20 Pravastatin Sodium [Pravachol] 20 mg PO HS 04/27/20 Losartan/Hydrochlorothiazide [Losartan-Hctz 100-25 mg Tab] 1 tab PO DAILY 02/03/24 Omeprazole 40 mg PO DAILY 02/03/24 Psyllium Husk [Metamucil] 0.4 gm PO DAILY 04/07/24 HYDROcodone/APAP 5-325MG [[place] 5-325] 1 tab PO Q4HR PRN 3 Days #18 tab 04/14/24 Controlled Substance Measures - Controlled Substance Measures Is patient prescribed a controlled substance at discharge?: Yes When asked, does pt state using other controlled substances?: No If prescribed controlled substance>3 days was MAPS reviewed?: Yes If Rx opioid, was Start Talking consent form obtained?: Yes Was information provided regarding opioid addiction?: Yes
== END ==
LOC: PNWHC3 07:20
PROVIDERS: ATTEND Specialist
DX: M54.16 Radiculopathy, lumbar region (principal)
CPT/HCPCS: 99211

== ENCOUNTER 2024-05-27 06:40 | Day surgery (SDC) | payer BC ==
[2024-05-25 10:34] VITALS: BMI 32.8
[2024-05-27 06:40] VITALS: RESP 18; TEMP 97.7
[2024-05-27] MEDS ORDERED: ROPIVACAINE 5MG/ML 20ML VIAL ONE (07:13)
[2024-05-27] MEDS ORDERED: methylPREDNISolone ACETATE 80 MG/ML 1 ML VIAL ONE (07:13)
--- NOTE | 2024-05-27 07:24 | P.PCN ---
Date of Procedure: 05/27/24 Procedure(s) Performed: Procedure= bilateral iliolumbar ligament steroid injection under fluoroscopy guidance (fluoroscopy image stored on file in the radiology Department ) Preoperative diagnosis= 1- bilateral iliolumbar ligament neuralgia 2-lumbar spondylosis with facet arthropathy Postoperative diagnosis=Same as preop Diagnosis . Complication = none Condition= stable Anesthesia= local anesthesia with ropivacaine 0.5% 4 ml only Indication for the procedure= patient complaining of low back pain , examination was positive for severe tenderness over the iliolumbar ligament bilaterally and patient diagnosed with iliolumbar ligament neuralgia, for this reason he was good candidate for iliolumbar ligament steroid injection. Description of the procedure= procedure risk and benefits discussed with the patient, including but not limited, risk of infection and bleeding, and ALLERGIC reaction to the medication and not complete pain relief and patient agreed with the preceding patient taken to the operating room, placed in prone position or standard monitors applied to the patient then after induction of anesthesia back prepped with chlorhexidine 3 times , Then under strict sterile technique, first I did the right side the which was identified under fluoroscopy guidance been local infiltration of the skin and subcu interstitial with lidocaine 1% then 22-gauge Quincke Needle advanced slowly under fluoroscopy and placed in the middle of the distance between the L5 transver process and the sacral ala ,needle placement confirmed with AP and oblique and lateral view, and after appropriate needle placement confirmed and after negative aspiration, or heme , then Ropivacaine 0.5% 3 mL, and 40 mg of Depo-Medrol mixed together and injected after negative aspiration patient tolerated the procedure well without any complication. Then the exact same procedure done for the left side.
[2024-05-27 07:26] VITALS: BP 133/79; PULSE 65
--- NOTE | 2024-05-27 08:54 | FL ---
EXAMINATION TYPE: FL guided pain mgmt statistic DATE OF EXAM: 05/27/2024 7:33 AM COMPARISON: Pre Operative Images if available both CT/MRI or plain film CLINICAL INDICATION: Female, 58 years old with history of PAIN; TECHNIQUE: FL guided pain mgmt statistic, multiple fluoroscopic images provided for procedure. Total fluoroscopy time: 9.1 seconds Total submitted images to PACS: 4 DAP: 0.10134 mGym2 Gycm2 uGym2 cGycm2 or equivalent. FINDINGS: Fluoroscopic images during injection for pain management demonstrate multilevel degeneration changes throughout the spine. No evidence for fracture. No acute process identified. IMPRESSION: 1. No evidence for intraoperative complication. 2. Please see the operative/procedural note for further details. [facility], , 05/27/2024 8:51 AM
== END 2024-05-27 07:42 | disposition home or self-care (01) ==
LOC: ORPAIN 06:40
PROVIDERS: ATTEND Specialist
DX: G58.8 Other specified mononeuropathies (principal); M47.816 Spondylosis without myelopathy or radiculopathy, lumbar region; Z79.1 Long term (current) use of non-steroidal anti-inflammatories (NSAID)
CPT/HCPCS: 20550; J2795; J1010

== ENCOUNTER → 2024-07-04 | Outpatient (CLI) | payer BC ==
[2024-07-04 08:36] VITALS: BP 151/93; PULSE 80; RESP 16; TEMP 97.3
--- NOTE | 2024-07-04 14:51 | P.PAINPG ---
PQRS Measure Charge Sheet Comment: HISTORY OF PRESENT ILLNESS: A 59 yr old female w at side presents today w severe and chronic LBP > 3 mo secondary to radiculopathy, spondylosis and facet arthropathy without myelopathy for evaluation s/p BL iliolumbar ligament injection #1. Pt states she experienced 70 % pain relief x 4 wks s/p procedure. Pt states pain level is provoked at 6-8 /10 in intensity, constant, localized in the lumbar spine, predominantly axial, stabbing in character w occasional shooting pain down the back of the BLEs. Pain is provoked by weight bearing activity. Pain is alleviated by chiropractic treatments x 8 wks in 2022, physician guided home exercises/ stretches every other day since 2022, ice, medications, topical, repositioning and rest . Interventional procedures include MARIA ISABEL L5-S1 x1, BL RFA L3-L5 (Apr 2024), BL iliolumbar ligament injection x1 Medications include [place] 7.5/325mg #60, Ibu, Tyl REVIEW OF ORGAN SYSTEMS: CONSTITUTIONAL: No fevers or chills. No recent weight loss. NEUROLOGICAL: + numbness and tingling along the distal extremities. No seizure disorders or headaches. MUSCULOSKELETAL: + pain PSYCHIATRIC: Denies current depression or suicidal thoughts. Physical Examinations : Constitutional : Cooperative , not in acute distress . Neurologic : Cranial nerve II to XII intact. No focal neurological deficits. Psychiatric : alert & oriented x 3. Matching mood & appropriate affect. Judgment & insight intact. Musculoskeletal : Cervical Spine Motor strength in the deltoid and biceps: Normal right side. Normal Left side Motor strength biceps and the wrist extensors: Normal right side . Normal left side Motor strength in the triceps muscle: Normal right side. Normal left side Deep tendon reflexes: Normal at the biceps. Normal at Brachioradialis. Normal at triceps Vertebral body tenderness to deep palpation over Cervical facet loading test: positive bilaterally Spurling test: positive bilaterally Neck distraction test: positive bilaterally Gio sign: positive bilaterally Lumbar spine Motor strength lower extremities ,thigh and legs 5/5 Right side , 5/5 Left side Deep tendon reflexes : Normal Knee Jerk. Normal Ankle Jerk Vertebral body tenderness over L5 Conner Test positive R> L L5-S1 Lumbar facet Loading Test: positive Right / positive Left L4-L5, L5-S1 Range of motion of the lumbar spine Flexion 30 degrees, extension 10 degrees Straight Leg Raise test: Left/ Right positive at degrees Shreyas test: positive right / positive left. Severe tenderness over the Sacroiliac joint on the Right / Left sides Gaenslen test: positive bilaterally Seated flexion test: positive bilaterally. Sacral spine : Severe tenderness over the Sacroiliac joint: right side / left side Range of motion: Flexion of the lumbar spine <60 degrees Range of motion: Extension of the lumbar spine <20 degrees Gaenslen's Test positive Shreyas test: positive right side / left side Thigh Thrust Test Sacral Thrust Test Imaging: MRI non contrast of the lumbar spine from 12/11/23 reviewed Assessment/ Plan : Lumbar radiculopathy Recommendation of medication management. Risks, benefits of procedure discussed and patient verbalized understanding. Protocol for discontinuation/ continuation of medications naheed procedure discussed. UDS collected 07/04/24. [place] 7.5/325mg #60 w 1 RF. Use, side effects adverse reactions, safe storage discussed. [place] 7.5/325mg #60 w 1 RF. All questions answered. I have spent greater than 30 minutes on patient care today. Dr Fairchild was available by phone for the evaluation of this patient. The time was used to review the medical records including relevant urine studies and Prescription history (MAPs), review of the available imaging, evaluation and examination of the patient, coordination of care with the medical staff and if applicable referring physicians, as well as creation of the medical record - Pain Location Bilateral Lower Back Non-Pharmacological Interventions: Heat, Ice, Inactivity, Position/Reposition Pharmacological Interventions: Block, Epidural, PRN Medication, Scheduled Medication, Topical Medication PQRS Narrative: Narcotic Agreement Date Signed 05/18/24 Hx Alcohol Use (MH) No Home Medications: Ambulatory Orders Cetirizine HCl [Zyrtec] 10 mg PO DAILY PRN 04/27/20 Montelukast [Singulair] 10 mg PO HS 04/27/20 Multivit with Calcium,Iron,Min [Women's Multivitamin] 1 each PO DAILY 04/27/20 Naprosyn (Unknown Dose) 1 tab PO DIRECTED PRN 04/27/20 Pravastatin Sodium [Pravachol] 20 mg PO HS 04/27/20 Losartan/Hydrochlorothiazide [Losartan-Hctz 100-25 mg Tab] 1 tab PO DAILY 02/03/24 Omeprazole 40 mg PO DAILY 02/03/24 Psyllium Husk [Metamucil] 0.4 gm PO DAILY 04/07/24 HYDROcodone/APAP 7.5-325MG [[place] 7.5-325] 1 tab PO BID PRN 30 Days #60 tab 07/04/24 HYDROcodone/APAP 7.5-325MG [[place] 7.5-325] 1 tab PO BID PRN 30 Days #60 tab 07/04/24 Controlled Substance Measures - Controlled Substance Measures Is patient prescribed a controlled substance at discharge?: Yes When asked, does pt state using other controlled substances?: Yes If prescribed controlled substance>3 days was MAPS reviewed?: Yes
== END ==
LOC: PNWHC3 07:58
PROVIDERS: ATTEND Specialist
DX: M47.26 Other spondylosis with radiculopathy, lumbar region (principal)
CPT/HCPCS: 80307; 99212

== ENCOUNTER → 2024-09-05 | Outpatient (CLI) | payer BC ==
[2024-09-05 08:00] VITALS: BP 139/81; PULSE 79; RESP 16; TEMP 97.1
--- NOTE | 2024-09-05 15:30 | P.PAINPG ---
PQRS Measure Charge Sheet Comment: HISTORY OF PRESENT ILLNESS: A 59 yr old female w at side presents today w severe and chronic LBP > 3 mo secondary to radiculopathy, spondylosis and facet arthropathy without myelopathy for medication refills. Pt states pain level is provoked at 5 /10 in intensity, constant, localized in the R lumbar spine, predominantly axial, stabbing in character w occasional shooting pain down the back of the BLEs. Pain is provoked by weight bearing activity. Pain is alleviated by chiropractic treatments x 8 wks in 2022, physician guided home exercises/ stretches every other day since 2022, ice, medications, topical, repositioning and rest . Interventional procedures include MARIA ISABEL L5-S1 x1, BL RFA L3-L5 (Apr 2024), BL iliolumbar ligament injection x1 Medications include [place] 7.5/325mg #60, Ibu, Tyl REVIEW OF ORGAN SYSTEMS: CONSTITUTIONAL: No fevers or chills. No recent weight l oss. NEUROLOGICAL: + numbness and tingling along the distal extremities. No seizure disorders or headaches. MUSCULOSKELETAL: + pain PSYCHIATRIC: Denies current depression or suicidal thoughts. Physical Examinations : Constitutional : Cooperative , not in acute distress . Neurologic : Cranial nerve II to XII intact. No focal neurological deficits. Psychiatric : alert & oriented x 3. Matching mood & appropriate affect. Judgment & insight intact. Musculoskeletal : Cervical Spine Motor strength in the deltoid and biceps: Normal right side. Normal Left side Motor strength biceps and the wrist extensors: Normal right side . Normal left side Motor strength in the triceps muscle: Normal right side. Normal left side Deep tendon reflexes: Normal at the biceps. Normal at Brachioradialis. Normal at triceps Vertebral body tenderness to deep palpation over Cervical facet loading test: positive bilaterally Spurling test: positive bilaterally Neck distraction test: positive bilaterally Gio sign: positive bilaterally Lumbar spine Motor strength lower extremities ,thigh and legs 5/5 Right side , 5/5 Left side Deep tendon reflexes : Normal Knee Jerk. Normal Ankle Jerk Vertebral body tenderness over L5 Conner Test positive R> L L5-S1 Lumbar facet Loading Test: positive Right / positive Left L4-L5, L5-S1 Range of motion of the lumbar spine Flexion 30 degrees, extension 10 degrees Straight Leg Raise test: Left/ Right positive at degrees Shreyas test: positive right / positive left. Severe tenderness over the Sacroiliac joint on the Right / Left sides Gaenslen test: positive bilaterally Seated flexion test: positive bilaterally. Sacral spine : Severe tenderness over the Sacroiliac joint: right side / left side Range of motion: Flexion of the lumbar spine <60 degrees Range of motion: Extension of the lumbar spine <20 degrees Gaenslen's Test positive Shreyas test: positive right side / left side Thigh Thrust Test Sacral Thrust Test Imaging: MRI non contrast of the lumbar spine from 12/11/23 reviewed Assessment/ Plan : Lumbar radiculopathy Recommendation of medication management. Opiate/ narcotic agreement renewed 05/18/24. UDS from 07/04/24 NEG for Opiates, +Phentermine. Will recheck UDS 09/05/24. [place] 7.5/325mg #60 w 1 RF. Use, side effects adverse reactions, safe storage discussed. All questions answered. I have spent greater than 30 minutes on patient care today. Dr Fairchild was available by phone for the evaluation of this patient. The time was used to review the medical records including relevant urine studies and Prescription history (MAPs), review of the available imaging, evaluation and examination of t he patient, coordination of care with the medical staff and if applicable referring physicians, as well as creation of the medical record PQRS Narrative: Narcotic Agreement Date Signed 05/18/24 Hx Alcohol Use (MH) No Home Medications: Ambulatory Orders Cetirizine HCl [Zyrtec] 10 mg PO DAILY PRN 04/27/20 Montelukast [Singulair] 10 mg PO HS 04/27/20 Multivit with Calcium,Iron,Min [Women's Multivitamin] 1 each PO DAILY 04/27/20 Naprosyn (Unknown Dose) 1 tab PO DIRECTED PRN 04/27/20 Pravastatin Sodium [Pravachol] 20 mg PO HS 04/27/20 Losartan/Hydrochlorothiazide [Losartan-Hctz 100-25 mg Tab] 1 tab PO DAILY 02/03/24 Omeprazole 40 mg PO DAILY 02/03/24 Psyllium Husk [Metamucil] 0.4 gm PO DAILY 04/07/24 HYDROcodone/APAP 7.5-325MG [[place] 7.5-325] 1 tab PO BID PRN 30 Days #60 tab 07/04/24 HYDROcodone/APAP 7.5-325MG [[place] 7.5-325] 1 tab PO BID PRN 30 Days #60 tab 07/04/24 Controlled Substance Measures - Controlled Substance Measures Is patient prescribed a controlled substance at discharge?: Yes When asked, does pt state using other controlled substances?: Yes If prescribed controlled substance>3 days was MAPS reviewed?: Yes
== END ==
LOC: PNWHC3 07:21
PROVIDERS: ATTEND Specialist
DX: M54.16 Radiculopathy, lumbar region (principal); Z79.899 Other long term (current) drug therapy
CPT/HCPCS: 80307; 99212

== ENCOUNTER → 2024-10-24 | Outpatient (CLI) | payer BC ==
--- NOTE | 2024-10-24 12:31 | MR ---
EXAMINATION TYPE: MR shoulder LT wo con DATE OF EXAM: 10/24/2024 11:33 AM COMPARISON: Outside radiograph 10/18/2024 CLINICAL INDICATION: Female, 59 years old with history of M25.512 LEFT SHOULDER PAIN, Lt shoulder karen n IV Contrast: Non- TECHNIQUE: Multiplanar, multisequence imaging of the left shoulder shoulder is performed without cont rast. FINDINGS: Some mild intrasubstance changes noted within the intracapsular portion of the long head bi ceps tendon. Mild fluid along the bicipital groove. The extracapsular portion remains appropriately s ituated along the bicipital groove. Heterogeneous thickening of the subscapularis tendon without tear. Moderate to severe degenerative change at the acromioclavicular joint with joint space narrowing and marginal spurring. Reactive subchondral marrow edema is also noted. There is mild mass effect onto th e underlying cuff due to the inferior spurring. Mild to moderate effusion in the subacromial/subdeltoid bursa. Some punctate calcifications measuring up to 3 mm are located along the lateral recess of the bursa. There is severe thickening and extensive heterogeneity of both supraspinatus and infraspinatus tendon s but without any high-grade tear identified. No atrophy of the rotator cuff musculature. The glenohumeral joint appears intact. No discrete labral tear given on a radiographic technique. Mil d glenohumeral joint effusion. No Hill-Sachs deformity or os acromiale. Some patchy red marrow hyperplasia which can be seen with anemia, obesity, smoking, and chronic disea se. IMPRESSION: 1. Severe diffuse rotator cuff tendinosis with markedly thickened and heterogeneous tendons. No discr ete tear is seen. 2. Given some punctate calcifications measuring up to 3 mm in the overlying bursa which shows a mild to moderate effusion, consider the possibility of a calcific tendinitis/bursitis. 3. Moderate to severe AC joint OA with mild subacromial impingement. [facility], , 10/24/2024 12:29 PM
== END | disposition home or self-care (01) ==
LOC: RADMRIMAIN 10:07
PROVIDERS: ATTEND Orthopaedic Surgery
DX: M19.012 Primary osteoarthritis, left shoulder (principal); M67.814 Other specified disorders of tendon, left shoulder; M25.812 Other specified joint disorders, left shoulder

== ENCOUNTER → 2024-10-31 | Outpatient (CLI) | payer BC ==
[2024-10-31 08:21] VITALS: BP 150/89; PULSE 82; RESP 16
--- NOTE | 2024-10-31 14:27 | P.PAINPG ---
PQRS Measure Charge Sheet Comment: HISTORY OF PRESENT ILLNESS: A 59 yr old female w at side presents today w severe and chronic LBP > 3 mo secondary to radiculopathy, spondylosis and facet arthropathy without myelopathy for medication refills. Pt states pain level is provoked at 4-5 /10 in intensity, constant, localized in the R lumbar spine, predominantly axial, stabbing in character w occasional shooting pain down the back of the BLEs. Pain is provoked by weight bearing activity. Pain is alleviated by chiropractic treatments x 8 wks in 2022, physician guided home exercises/ stretches every other day since 2022, ice, medications, topical, repositioning and rest . Interventional procedures include MARIA ISABEL L5-S1 x1, BL RFA L3-L5 (Apr 2024), BL iliolumbar ligament injection x1 Medications include [place] 7.5/325mg #60, Ibu, Tyl REVIEW OF ORGAN SYSTEMS: CONSTITUTIONAL: No fevers or chills. No recent weight loss. NEUROLOGICAL: + numbness and tingling along the distal extremities. No seizure disorders or headaches. MUSCULOSKELETAL: + pain PSYCHIATRIC: Denies current depression or suicidal thoughts. Physical Examinations : Constitutional : Cooperative , not in acute distress . Neurologic : Cranial nerve II to XII intact. No focal neurological deficits. Psychiatric : alert & oriented x 3. Matching mood & appropriate affect. Judgment & insight intact. Musculoskeletal : Cervical Spine Motor strength in the deltoid and biceps: Normal right side. Normal Left side Motor strength biceps and the wrist extensors: Normal right side . Normal left side Motor strength in the triceps muscle: Normal right side. Normal left side Deep tendon reflexes: Normal at the biceps. Normal at Brachioradialis. Normal at triceps Vertebral body tenderness to deep palpation over Cervical facet loading test: positive bilaterally Spurling test: positive bilaterally Neck distraction test: positive bilaterally Gio sign: positive bilaterally Lumbar spine Motor strength lower extremities ,thigh and legs 5/5 Right side , 5/5 Left side Deep tendon reflexes : Normal Knee Jerk. Normal Ankle Jerk Vertebral body tenderness over L5 Conner Test positive R> L L5-S1 Lumbar facet Loading Test: positive Right / positive Left L4-L5, L5-S1 Range of motion of the lumbar spine Flexion 30 degrees, extension 10 degrees Straight Leg Raise test: Left/ Right positive at degrees Shreyas test: positive right / positive left. Severe tenderness over the Sacroiliac joint on the Right / Left sides Gaenslen test: positive bilaterally Seated flexion test: positive bilaterally. Sacral spine : Severe tenderness over the Sacroiliac joint: right side / left side Range of motion: Flexion of the lumbar spine <60 degrees Range of motion: Extension of the lumbar spine <20 degrees Gaenslen's Test positive Shreyas test: positive right side / left side Thigh Thrust Test Sacral Thrust Test Imaging: MRI non contrast of the lumbar spine from 12/11/23 reviewed Assessment/ Plan : Lumbar radiculopathy Recommendation of medication management. Opiate/ narcotic agreement renewed 05/18/24. UDS from 07/04/24 NEG for Opiates, +Phentermine. FAWAD Morris stated the lab in [place] stated the UDS sample from 09/05/24 is missing. Recollect UDS 10/31/24. [place] 7.5/325mg #60 w 1 RF. Use, side effects adverse reactions, safe storage discussed. All questions answered. I have spent greater than 30 minutes on patient care today. Dr Fairchild was available by phone for the evaluation of this patient. The time was used to review the medical records including relevant urine studies and Prescription h istory (MAPs), review of the available imaging, evaluation and examination of the patient, coordination of care with the medical staff and if applicable referring physicians, as well as creation of the medical record PQRS Narrative: Narcotic Agreement Date Signed 05/18/24 Hx Alcohol Use (MH) No Home Medications: Ambulatory Orders Cetirizine HCl [Zyrtec] 10 mg PO DAILY PRN 04/27/20 Montelukast [Singulair] 10 mg PO HS 04/27/20 Multivit with Calcium,Iron,Min [Women's Multivitamin] 1 each PO DAILY 04/27/20 Naprosyn (Unknown Dose) 1 tab PO DIRECTED PRN 04/27/20 Pravastatin Sodium [Pravachol] 20 mg PO HS 04/27/20 Losartan/Hydrochlorothiazide [Losartan-Hctz 100-25 mg Tab] 1 tab PO DAILY 02/03/24 Omeprazole 40 mg PO DAILY 02/03/24 Psyllium Husk [Metamucil] 0.4 gm PO DAILY 04/07/24 HYDROcodone/APAP 7.5-325MG [[place] 7.5-325] 1 tab PO BID PRN 30 Days #60 tab 10/31/24 HYDROcodone/APAP 7.5-325MG [[place] 7.5-325] 1 tab PO BID PRN 30 Days #60 tab 10/31/24 Controlled Substance Measures - Controlled Substance Measures Is patient prescribed a controlled substance at discharge?: Yes When asked, does pt state using other controlled substances?: Yes If prescribed controlled substance>3 days was MAPS reviewed?: Yes
== END ==
LOC: PNWHC3 07:19
PROVIDERS: ATTEND Specialist
DX: M47.26 Other spondylosis with radiculopathy, lumbar region (principal)
CPT/HCPCS: 80307; 99212

== ENCOUNTER → 2024-11-18 | Outpatient (CLI) | payer BC ==
--- NOTE | 2024-11-18 07:53 | MM ---
Reason for Exam: Screening (asymptomatic). Last screening mammogram was performed 12 month(s) ago. Patient History: Menarche at age 11. First Full-Term at age 17. Postmenopausal. Risk Values: Cee 5 year model risk: 1.0%. NCI Lifetime model risk: 5.3%. Prior Study Comparison: 04/19/2020 Bilateral Screening Mammogram, [facility]. 11/21/2020 Right Diagnostic Mammogram, [facility]. 11/18/2023 Bilateral MG 3D screening mammo w/cad, [facility]. Tissue Density: There are scattered areas of fibroglandular density. Findings: Analyzed By CAD. Right breast: There is no suspicious group of microcalcifications or new suspicious mass. Left breast: There is no suspicious group of microcalcifications or new suspicious mass. Overall Assessment: Negative, BI-RAD 1 Management: Screening Mammogram of both breasts in [address] [facility] will attempt to contact patient to return for supplemental views and ultrasound if indicated. Patient should continue monthly self-breast exams. A clinical breast exam by your physician is recommended on an annual basis. This exam should not preclude additional follow-up of suspicious palpable abnormalities. Note on Cee scores and lifetime risk: 1. A Cee score greater than 3% is considered moderate risk. If this is the case, consider specialist referral to assess eligibility for a risk reducing agent. 2. If overall lifetime risk for the development of breast cancer is 20% or higher, the patient may qualify for future screening with alternating mammogram and breast MRI. [facility], , 11/18/2024 7:49 AM. Electronically signed and approved by: Gerardo Waller DO
--- NOTE | 2024-11-18 10:04 | BD ---
EXAMINATION TYPE: Axial Bone Density DATE OF EXAM: 11/18/2024 CLINICAL HISTORY: 59 years old Female. ICD-10 CODE: Z13.820 ENCOUNTER FOR SCREENING F , Additional H istory: Height: 61 Weight: 182.6 FRAX RISK QUESTIONS: Alcohol (3 or more units per day): no Family History (Parent hip fracture): no Glucocorticoids (More than 3mos): no (Ex: prednisone, prednisolone, methylprednisolone, dexamethasone, and hydrocortisone). History of Fracture in Adulthood: no Secondary Osteoporosis: 1. Type 1 Diabetes: no 2. Hyperthyroidism: no 3. Menopause before 45: no 4. Malnutrition: no 5. Chronic liver disease: no Rheumatoid Arthritis: no Current Tobacco Use: no RISK FACTORS HISTORY OF: Hip Fracture (Right/Left): no Spine Fracture: no History of Wrist Fracture: no Surgery to Spine/Hip(right/left)/Wrist (right/left): no MEDICATIONS: Thyroid Medications: no Osteoporosis Medications: no EXAM MEASUREMENTS: Bone mineral densitometry was performed using the Event[employer] System. Bone mineral density as measured about the Lumbar spine is: ----- L1-L4(G/cm2): 1.347 T Score Values are as follows: ----- L1: -0.1 ----- L2: 1.4 ----- L3: 2.7 ----- L4: 1.4 ----- L1-L4: 1.4 Z Score Values are as follows: ----- L1: 0.6 ----- L2: 2.0 ----- L3: 3.4 ----- L4: 2.0 ----- L1-L4: 2.0 Baseline Study Bone mineral density about the R hip (g/cm2): 1.186 Bone mineral density about the L hip (g/cm2): 1.193 T Score values are as follows: -----R Neck: -0.4 -----L Neck: -0.25 -----R Total: 1.4 -----L Total: 1.5 Z Score values are as follows: -----R Neck: 0.4 -----L Neck: 0.7 -----R Total: 1.9 -----L Total: 2.0 Baseline Study FRAX%s: The graph provided illustrates a 6.1% chance for a major osteoporotic fx and a 0.2% chance fo r the hips probability for fx in 10 years time. IMPRESSION: Normal (Values between +1 and -1 indicate normal bone mass). Consider repeating this study in 5 year s or sooner if there is some new clinical indication. NOTE: T-SCORE=SD OF THE YOUNG ADULT MEAN. [facility], , 11/18/2024 10:02 AM
== END | disposition home or self-care (01) ==
LOC: RADMAMWWP 07:14
PROVIDERS: ATTEND Family Medicine
DX: Z12.31 Encounter for screening mammogram for malignant neoplasm of breast (principal); Z13.820 Encounter for screening for osteoporosis; M85.80 Other specified disorders of bone density and structure, unspecified site; R92.323 Mammographic fibroglandular density, bilateral breasts; Z78.0 Asymptomatic menopausal state
CPT/HCPCS: 77063; 77067; 77080

== ENCOUNTER → 2024-12-26 | Outpatient (CLI) | payer BC ==
[2024-12-26 07:47] VITALS: BP 120/80; PULSE 90; RESP 16; TEMP 98
--- NOTE | 2024-12-26 15:41 | P.PAINPG ---
Objective - Vital Signs Vital signs: Intake & Output 12/25/24 12/26/24 12/26/24 18:59 06:59 18:59 Weight 127.006 kg PQRS Measure Charge Sheet Comment: HISTORY OF PRESENT ILLNESS: A 59 yr old female w at side presents today w severe and chronic LBP > 3 mo secondary to radiculopathy, spondylosis and facet arthropathy without myelopathy for medication refills. Pt states pain level is provoked at 2-8 /10 in intensity, constant, localized in the R lumbar spine, predominantly axial, stabbing in character w occasional shooting pain down the back of the BLEs. Pain is provoked by weight bearing activity. Pain is alleviated by chiropractic treatments x 8 wks in 2022, physician guided home exercises/ stretches every other day since 2022, ice, medications, topical, repositioning and rest . Interventional procedures include MARIA ISABEL L5-S1 x1, BL RFA L3-L5 (05/05), BL iliolumbar ligament injection x1 Medications include [place] 7.5/325mg #60, Ibu, Tyl REVIEW OF ORGAN SYSTEMS: CONSTITUTIONAL: No fevers or chills. No recent weight loss. NEUROLOGICAL: + numbness and tingling along the distal extremities. No seizure disorders or headaches. MUSCULOSKELETAL: + pain PSYCHIATRIC: Denies current depression or suicidal thoughts. Physical Examinations : Constitutional : Cooperative , not in acute distress . Neurologic : Cranial nerve II to XII intact. No focal neurological deficits. Psychiatric : alert & oriented x 3. Matching mood & appropriate affect. Judgment & insight intact. Musculoskeletal : Cervical Spine Motor strength in the deltoid and biceps: Normal right side. Normal Left side Motor strength biceps and the wrist extensors: Normal right side . Normal left side Motor strength in the triceps muscle: Normal right side. Normal left side Deep tendon reflexes: Normal at the biceps. Normal at Brachioradialis. Normal at triceps Vertebral body tenderness to deep palpation over Cervical facet loading test: positive bilaterally Spurling test: positive bilaterally Neck distraction test: positive bilaterally Gio sign: positive bilaterally Lumbar spine Motor strength lower extremities ,thigh and legs 5/5 Right side , 5/5 Left side Deep tendon reflexes : Normal Knee Jerk. Normal Ankle Jerk Vertebral body tenderness over L5 Conner Test positive R> L L5-S1 Lumbar facet Loading Test: positive Right / positive Left L4-L5, L5-S1 Range of motion of the lumbar spine Flexion 30 degrees, extension 10 degrees Straight Leg Raise test: Left/ Right positive at degrees Shreyas test: positive right / positive left. Severe tenderness over the Sacroiliac joint on the Right / Left sides Gaenslen test: positive bilaterally Seated flexion test: positive bilaterally. Sacral spine : Severe tenderness over the Sacroiliac joint: right side / left side Range of motion: Flexion of the lumbar spine <60 degrees Range of motion: Extension of the lumbar spine <20 degrees Gaenslen's Test positive Shreyas test: positive right side / left side Thigh Thrust Test Sacral Thrust Test Imaging: MRI non contrast of the lumbar spine from 12/11/23 reviewed Assessment/ Plan : Lumbar radiculopathy Recommendation of medication management. Opiate/ narcotic agreement renewed 05/18/24. UDS 10/31/24 reviewed and consistent. [place] 7.5/325mg #60 w 1 RF. Use, side effects adverse reactions, safe storage discussed. MAPS not in operation (12/26/24) All questions answered. I have spent greater than 30 minutes on patient care today. Dr Fairchild was available by phone for the evaluation of this patient. The time was used to review the medical records including relevant urine studies and Prescription history (MAPs), review of the available imaging, evaluation and examination of the patient, coordination of care with the medical staff and if applicable referring physicians, as well as creation of the medical record - Pain Location Right Lower Back Non-Pharmacological Interventions: Elevation, Exercise, Heat, Home Exercise, Inactivity, Physical Therapy, Position/Reposition, Sitting, Stretching Pharmacological Interventions: Block, Epidural, PRN Medication, Scheduled Medication, Topical Medication PQRS Narrative: Narcotic Agreement Date Signed 05/18/24 Hx Alcohol Use (MH) No Home Medications: Ambulatory Orders Cetirizine HCl [Zyrtec] 10 mg PO DAILY PRN 04/27/20 Montelukast [Singulair] 10 mg PO HS 04/27/20 Multivit with Calcium,Iron,Min [Women's Multivitamin] 1 each PO DAILY 04/27/20 Naprosyn (Unknown Dose) 1 tab PO DIRECTED PRN 04/27/20 Pravastatin Sodium [Pravachol] 20 mg PO HS 04/27/20 Losartan/Hydrochlorothiazide [Losartan-Hctz 100-25 mg Tab] 1 tab PO DAILY 02/03/24 Omeprazole 40 mg PO DAILY 02/03/24 Psyllium Husk [Metamucil] 0.4 gm PO DAILY 04/07/24 HYDROcodone/APAP 7.5-325MG [[place] 7.5-325] 1 tab PO BID PRN 30 Days #60 tab 12/26/24 HYDROcodone/APAP 7.5-325MG [[place] 7.5-325] 1 tab PO BID PRN 30 Days #60 tab 12/26/24 Phentermine HCl [Adipex-P] 37.5 mg PO [id number] 12/26/24 Controlled Substance Measures - Controlled Substance Measures Is patient prescribed a controlled substance at discharge?: Yes
== END ==
LOC: PNWHC3 07:33
PROVIDERS: ATTEND Specialist
DX: M47.26 Other spondylosis with radiculopathy, lumbar region (principal)
CPT/HCPCS: 99211